=== PATIENT | female | born 1970 | race Caucasian/White ===

== ENCOUNTER 2021-08-30 18:49 | Inpatient (IN) ==
[2021-08-30] MEDS ORDERED: Naloxone 0.4 MG/ML INJ IVP PRN (21:39)
[2021-08-30] MEDS ORDERED: *HR* Dextrose 50 % in Water (Syg) 50 ML SYRINGE IVP PRN (21:41)
[2021-08-30] MEDS ORDERED: D5% in Water 1,000 ML IVC PRN (21:41)
[2021-08-30] MEDS ORDERED: Dextrose 4 GM Chewable Tablets PO PRN ×2 (21:41)
[2021-08-30] MEDS: Insulin LISPRO 300 UNITS/3 ML VIAL SUBQ SCH (22:02)
[2021-08-30 22:09] LABS: Basophils % 0.2 %; Eosinophils # 0.5 K/mcL (0.0-0.6); Eosinophils % 5.5 %; Hematocrit 27.6 % (35.3-44.9); Hemoglobin 8.5 g/dL (11.5-15.4); Immature Granulocytes % 0.2 % (0-4); Lymphocytes # 2.4 K/mcL (0.6-4.6); Lymphocytes % 28.7 %; Mean Corpuscular HGB Conc 30.8 g/dL (31.6-35.5); Mean Corpuscular Volume 94.2 fL (83.0-100.0); Mean Platelet Volume 8.8 fL (9.4-12.4); Monocytes # 0.6 K/mcL (0.0-1.3); Monocytes % 6.7 %; Platelet Count 225 K/mcL (140-400); Red Blood Count 2.93 M/mcL (3.82-4.97); Red Cell Distribution Width 15.3 % (11.5-14.5); Segmented Neutrophils % 58.7 %; White Blood Count 8.5 K/mcL (4.3-11.1)
[2021-08-30 23:31] LABS: Estimated Average Glucose 105 mg/dl; Hemoglobin A1C 5.3 %
[2021-08-31] MEDS ORDERED: Azithromycin 250 MG TABLET PO ONE (00:13)
[2021-08-31] MEDS: Sodium Bicarbonate 75 MEQ in 0.45 % Sodium Chloride 1,000 ML IVC SCH ×2 (00:53→14:13)
[2021-08-31 02:51] LABS: Basophils % 0.1 %; Eosinophils # 0.3 K/mcL (0.0-0.6); Eosinophils % 4.9 %; Hematocrit 22.2 % (35.3-44.9); Hemoglobin 7.1 g/dL (11.5-15.4); Immature Granulocytes % 0.3 % (0-4); Lymphocytes # 2.4 K/mcL (0.6-4.6); Lymphocytes % 35.4 %; Mean Corpuscular Volume 93.7 fL (83.0-100.0); Monocytes # 0.5 K/mcL (0.0-1.3); Monocytes % 7.7 %; Neutrophils # 3.5 K/mcL (1.6-8.9); Platelet Count 194 K/mcL (140-400); Red Blood Count 2.37 M/mcL (3.82-4.97); Red Cell Distribution Width 15.3 % (11.5-14.5); Segmented Neutrophils % 51.6 %; White Blood Count 6.8 K/mcL (4.3-11.1)
[2021-08-31 02:54] LABS: Albumin 2.5 g/dL (3.5-5.7); Albumin/Globulin Ratio 1.1 (1.1-2.2); Bilirubin,Total 0.2 mg/dL (0.3-1.0); Calcium 8.2 mg/dL (8.6-10.3); Globulin 2.3 g/dL (2.4-3.5); Magnesium 1.3 mg/dL (1.6-2.6); Phosphorous 5.4 mg/dL (2.7-4.5); Potassium 4.1 mEq/L (3.5-5.1); Total Protein 4.8 g/dL (6.4-8.9)
[2021-08-31] MEDS: *HR* Heparin 5,000 UNIT/ML VIAL SQ SCH ×3 (05:07→21:12)
[2021-08-31] MEDS: Insulin LISPRO 300 UNITS/3 ML VIAL SUBQ SCH ×2 (07:29→12:04)
[2021-08-31 09:00] LABS: Uric Acid 7.4 mg/dL (2.3-7.6)
[2021-08-31 10:50] LABS: Bacteria,Urine Few per hpf (None-Few); Bilirubin,Urine Negative (Negative); Blood,Urine Moderate (Negative); Clarity,Urine Clear (Clear); Color,Urine Light-Yellow (Yellow); Glucose,Urine (UA) Normal (Normal); Ketones,Urine Negative (Negative); Leukocyte Esterase,Urine Small (Negative); Mucus,Urine Few per lpf (None-Few); Nitrite,Urine Negative (Negative); Protein,Urine >=300 mg/dL (Neg-Trace); Specific Gravity,Urine 1.014 (1.010-1.025); Squamous Epithelial Cell,Urine Few per hpf (None-Few); Urobilinogen,Urine Normal (Normal)
[2021-08-31 11:20] LABS: Protein/Creatinine Ratio,Urine 4.6 mg/mg (0.00-0.20); Sodium, Urine 66.3 mEq/L
[2021-08-31 13:46] LABS: Hematocrit 24.7 % (35.3-44.9); Hemoglobin 7.9 g/dL (11.5-15.4)
[2021-08-31] MEDS ORDERED: Fluticasone Propionate Nasal 50 MCG/SPRAY BOTTLE NS PRN (14:46)
[2021-08-31 15:03] LABS: Complement C3 90 mg/dL (87-200); Rheumatoid Factor < 10 IU/mL (Less than 14)
[2021-08-31 15:27] LABS: Vitamin D 25 Hydroxy 14 ng/mL (30-80)
[2021-08-31] MEDS: amLODIPine 5 MG TABLET PO SCH (15:36)
[2021-08-31] MEDS: Amoxicillin/Clavulanate 500 MG TABLET PO SCH (16:37)
[2021-08-31] MEDS ORDERED: Insulin DETEMIR 100 UNIT/ML X5UNITS SUBQ SCH (21:00)
[2021-09-01] MEDS: Sodium Bicarbonate 75 MEQ in 0.45 % Sodium Chloride 1,000 ML IVC SCH ×2 (01:36→13:44)
[2021-09-01 03:08] LABS: Basophils % 0.1 %; Eosinophils # 0.4 K/mcL (0.0-0.6); Eosinophils % 5.4 %; Hematocrit 22.7 % (35.3-44.9); Hemoglobin 7.2 g/dL (11.5-15.4); Immature Granulocytes % 0.4 % (0-4); Lymphocytes # 1.8 K/mcL (0.6-4.6); Lymphocytes % 26.6 %; Mean Corpuscular HGB Conc 31.7 g/dL (31.6-35.5); Mean Corpuscular Hemoglobin 29.5 pg (28.0-33.3); Mean Platelet Volume 9.1 fL (9.4-12.4); Monocytes # 0.5 K/mcL (0.0-1.3); Monocytes % 7.4 %; Neutrophils # 4.1 K/mcL (1.6-8.9); Platelet Count 211 K/mcL (140-400); Red Blood Count 2.44 M/mcL (3.82-4.97); Red Cell Distribution Width 15.1 % (11.5-14.5); Segmented Neutrophils % 60.1 %; White Blood Count 6.8 K/mcL (4.3-11.1)
[2021-09-01 03:23] LABS: Calcium 8.1 mg/dL (8.6-10.3); Magnesium 1.8 mg/dL (1.6-2.6); Phosphorous 4.6 mg/dL (2.7-4.5); Potassium 3.7 mEq/L (3.5-5.1)
[2021-09-01] MEDS: *HR* Heparin 5,000 UNIT/ML VIAL SQ SCH ×3 (05:15→20:26)
[2021-09-01] MEDS: Amoxicillin/Clavulanate 500 MG TABLET PO SCH ×2 (07:32→16:23)
[2021-09-01] MEDS: Azithromycin 250 MG TABLET PO SCH (07:33)
[2021-09-01] MEDS: amLODIPine 5 MG TABLET PO SCH (07:33)
[2021-09-01] MEDS ORDERED: Iron Sucrose Complex 200 MG in 0.9 % Sodium Chloride 100 ML IVPB ONE (10:57)
[2021-09-01] MEDS: Lactobacillus 1 EACH CAP.SPRINK PO SCH (20:25)
[2021-09-02] MEDS: Sodium Bicarbonate 75 MEQ in 0.45 % Sodium Chloride 1,000 ML IVC SCH ×4 (00:31→20:53)
[2021-09-02] MEDS: *HR* Heparin 5,000 UNIT/ML VIAL SQ SCH ×3 (05:23→20:53)
[2021-09-02 06:16] LABS: Basophils % 0.3 %; Eosinophils # 0.3 K/mcL (0.0-0.6); Eosinophils % 5.4 %; Hematocrit 23.8 % (35.3-44.9); Hemoglobin 7.7 g/dL (11.5-15.4); Immature Granulocytes % 0.2 % (0-4); Lymphocytes # 1.9 K/mcL (0.6-4.6); Lymphocytes % 32.8 %; Mean Corpuscular HGB Conc 32.4 g/dL (31.6-35.5); Mean Corpuscular Hemoglobin 29.3 pg (28.0-33.3); Mean Corpuscular Volume 90.5 fL (83.0-100.0); Mean Platelet Volume 9.2 fL (9.4-12.4); Monocytes # 0.5 K/mcL (0.0-1.3); Monocytes % 9.2 %; Neutrophils # 3.1 K/mcL (1.6-8.9); Platelet Count 208 K/mcL (140-400); Red Blood Count 2.63 M/mcL (3.82-4.97); Red Cell Distribution Width 15.4 % (11.5-14.5); Segmented Neutrophils % 52.1 %; White Blood Count 5.9 K/mcL (4.3-11.1)
[2021-09-02 06:34] LABS: Calcium 8.5 mg/dL (8.6-10.3); Magnesium 1.7 mg/dL (1.6-2.6); Phosphorous 4.6 mg/dL (2.7-4.5); Potassium 3.5 mEq/L (3.5-5.1)
[2021-09-02] MEDS: amLODIPine 5 MG TABLET PO SCH (08:58)
[2021-09-02] MEDS: Azithromycin 250 MG TABLET PO SCH (08:58)
[2021-09-02] MEDS: Lactobacillus 1 EACH CAP.SPRINK PO SCH ×2 (08:58→20:52)
[2021-09-02] MEDS: Amoxicillin/Clavulanate 500 MG TABLET PO SCH ×2 (08:58→16:54)
[2021-09-03 02:53] LABS: Basophils % 0.2 %; Eosinophils # 0.3 K/mcL (0.0-0.6); Eosinophils % 5.3 %; Hematocrit 20.3 % (35.3-44.9); Hemoglobin 6.7 g/dL (11.5-15.4); Immature Granulocytes % 0.2 % (0-4); Lymphocytes % 34.6 %; Mean Corpuscular Hemoglobin 29.9 pg (28.0-33.3); Mean Corpuscular Volume 90.6 fL (83.0-100.0); Mean Platelet Volume 9.7 fL (9.4-12.4); Monocytes # 0.6 K/mcL (0.0-1.3); Monocytes % 9.7 %; Neutrophils # 2.8 K/mcL (1.6-8.9); Platelet Count 201 K/mcL (140-400); Red Blood Count 2.24 M/mcL (3.82-4.97); Red Cell Distribution Width 15.2 % (11.5-14.5); White Blood Count 5.7 K/mcL (4.3-11.1)
[2021-09-03 02:59] LABS: Phosphorous 4.7 mg/dL (2.7-4.5); Potassium 3.4 mEq/L (3.5-5.1)
[2021-09-03] MEDS: Sodium Bicarbonate 75 MEQ in 0.45 % Sodium Chloride 1,000 ML IVC SCH ×2 (05:44→08:29)
[2021-09-03] MEDS: *HR* Heparin 5,000 UNIT/ML VIAL SQ SCH (05:46)
[2021-09-03] MEDS: Azithromycin 250 MG TABLET PO SCH (08:29)
[2021-09-03] MEDS: Lactobacillus 1 EACH CAP.SPRINK PO SCH ×2 (08:29→20:44)
[2021-09-03] MEDS: amLODIPine 5 MG TABLET PO SCH (08:29)
[2021-09-03] MEDS: Amoxicillin/Clavulanate 500 MG TABLET PO SCH ×2 (08:29→16:11)
[2021-09-03] MEDS: Ergocalciferol (VIT D2) 50,000 UNIT (1.25MG) CAP PO SCH (08:34)
[2021-09-03] MEDS ORDERED: 0.9 % Sodium Chloride 250 ML ONE (10:27)
[2021-09-03] MEDS: 0.9 % Sodium Chloride 1,000 ML IVC SCH (13:19)
[2021-09-03 16:24] LABS: Hematocrit 28.1 % (35.3-44.9); Hemoglobin 9.2 g/dL (11.5-15.4)
[2021-09-03 20:58] LABS: Urine Collection Volume NOT PROVIDED mL
[2021-09-04 05:46] LABS: Basophils % 0.2 %; Eosinophils # 0.3 K/mcL (0.0-0.6); Eosinophils % 4.4 %; Hematocrit 25.2 % (35.3-44.9); Hemoglobin 8.2 g/dL (11.5-15.4); Immature Granulocytes % 0.3 % (0-4); Lymphocytes # 1.6 K/mcL (0.6-4.6); Lymphocytes % 24.5 %; Mean Corpuscular HGB Conc 32.5 g/dL (31.6-35.5); Mean Corpuscular Hemoglobin 29.6 pg (28.0-33.3); Mean Platelet Volume 9.4 fL (9.4-12.4); Monocytes # 0.6 K/mcL (0.0-1.3); Monocytes % 9.6 %; Platelet Count 203 K/mcL (140-400); Red Blood Count 2.77 M/mcL (3.82-4.97); Red Cell Distribution Width 16.1 % (11.5-14.5); White Blood Count 6.6 K/mcL (4.3-11.1)
[2021-09-04 06:16] LABS: Calcium 8.2 mg/dL (8.6-10.3); Potassium 3.4 mEq/L (3.5-5.1)
[2021-09-04] MEDS: 0.9 % Sodium Chloride 1,000 ML IVC SCH ×2 (06:33→16:27)
[2021-09-04] MEDS: Magnesium Oxide 400 MG TABLET PO SCH (09:23)
[2021-09-04] MEDS: Azithromycin 250 MG TABLET PO SCH (09:23)
[2021-09-04] MEDS: Lactobacillus 1 EACH CAP.SPRINK PO SCH ×2 (09:23→19:35)
[2021-09-04] MEDS: Amoxicillin/Clavulanate 500 MG TABLET PO SCH ×2 (09:24→16:27)
[2021-09-04] MEDS: amLODIPine 5 MG TABLET PO SCH (09:24)
[2021-09-04 15:12] LABS: Kappa Qnt Free Light Chains 71.09 mg/L (3.30-19.40); Lambda Qnt Free Light Chains 74.64 mg/L (5.71-26.30)
[2021-09-04 23:50] LABS: Beta Globulin (PEP) 0.56 g/dL (0.48-1.10)
[2021-09-05 02:23] LABS: Basophils % 0.1 %; Eosinophils # 0.3 K/mcL (0.0-0.6); Eosinophils % 4.3 %; Hematocrit 24.8 % (35.3-44.9); Hemoglobin 8.1 g/dL (11.5-15.4); Immature Granulocytes % 0.4 % (0-4); Lymphocytes # 1.6 K/mcL (0.6-4.6); Lymphocytes % 22.4 %; Mean Corpuscular HGB Conc 32.7 g/dL (31.6-35.5); Mean Corpuscular Hemoglobin 29.5 pg (28.0-33.3); Mean Corpuscular Volume 90.2 fL (83.0-100.0); Mean Platelet Volume 9.2 fL (9.4-12.4); Monocytes # 0.7 K/mcL (0.0-1.3); Monocytes % 10.4 %; Neutrophils # 4.5 K/mcL (1.6-8.9); Platelet Count 181 K/mcL (140-400); Red Blood Count 2.75 M/mcL (3.82-4.97); Red Cell Distribution Width 15.9 % (11.5-14.5); Segmented Neutrophils % 62.4 %; White Blood Count 7.1 K/mcL (4.3-11.1)
[2021-09-05 02:38] LABS: Calcium 8.2 mg/dL (8.6-10.3); Phosphorous 5.3 mg/dL (2.7-4.5); Potassium 3.5 mEq/L (3.5-5.1)
[2021-09-05] MEDS: 0.9 % Sodium Chloride 1,000 ML IVC SCH ×4 (03:18→15:02)
[2021-09-05] MEDS: Amoxicillin/Clavulanate 500 MG TABLET PO SCH ×2 (09:11→16:53)
[2021-09-05] MEDS: amLODIPine 5 MG TABLET PO SCH (09:11)
[2021-09-05] MEDS: Magnesium Oxide 400 MG TABLET PO SCH (09:12)
[2021-09-05] MEDS: Lactobacillus 1 EACH CAP.SPRINK PO SCH ×2 (09:12→19:35)
[2021-09-05 10:25] LABS: IFE Reflexed NOT DONE
[2021-09-05 11:24] LABS: INR 1.1; Prothrombin Time 12.7 Seconds (9.4-12.1)
[2021-09-05 11:27] LABS: Activated Partial Thrombo Time 35.2 Seconds (26.0-36.0)
[2021-09-05 11:37] LABS: Rheumatoid Factor < 10 IU/mL (Less than 14)
[2021-09-05 11:58] LABS: Vitamin B12 215 pg/mL (250-1100)
[2021-09-05 13:23] LABS: Hepatitis B Surface Antigen Nonreactive (Nonreactive)
[2021-09-05 13:53] LABS: Hepatitis B Core IgM Nonreactive (Nonreactive); Hepatitis C Virus Antibody Nonreactive (Nonreactive)
[2021-09-05 13:56] LABS: Hepatitis A Antibody IgM Nonreactive (Nonreactive)
[2021-09-05] MEDS: carvediloL 6.25 MG TABLET PO SCH (19:34)
[2021-09-06 02:17] LABS: Basophils % 0.1 %; Eosinophils # 0.4 K/mcL (0.0-0.6); Eosinophils % 4.4 %; Hemoglobin 8.2 g/dL (11.5-15.4); Immature Granulocytes % 0.3 % (0-4); Lymphocytes # 1.7 K/mcL (0.6-4.6); Mean Corpuscular HGB Conc 32.8 g/dL (31.6-35.5); Mean Corpuscular Hemoglobin 29.6 pg (28.0-33.3); Mean Corpuscular Volume 90.3 fL (83.0-100.0); Mean Platelet Volume 9.3 fL (9.4-12.4); Monocytes # 0.8 K/mcL (0.0-1.3); Monocytes % 9.8 %; Neutrophils # 5.6 K/mcL (1.6-8.9); Platelet Count 223 K/mcL (140-400); Red Blood Count 2.77 M/mcL (3.82-4.97); Red Cell Distribution Width 15.3 % (11.5-14.5); Segmented Neutrophils % 65.4 %; White Blood Count 8.6 K/mcL (4.3-11.1)
[2021-09-06 02:36] LABS: Calcium 8.1 mg/dL (8.6-10.3); Magnesium 1.5 mg/dL (1.6-2.6); Potassium 3.6 mEq/L (3.5-5.1)
[2021-09-06] MEDS ORDERED: carvediloL 6.25 MG TABLET PO SCH (08:00)
[2021-09-06] MEDS: Lactobacillus 1 EACH CAP.SPRINK PO SCH ×2 (08:17→21:30)
[2021-09-06] MEDS: Amoxicillin/Clavulanate 500 MG TABLET PO SCH ×2 (08:17→17:31)
[2021-09-06] MEDS: amLODIPine 5 MG TABLET PO SCH (08:17)
[2021-09-06] MEDS: carvediloL 6.25 MG TABLET PO SCH ×2 (08:18→17:31)
[2021-09-06] MEDS: Magnesium Oxide 400 MG TABLET PO SCH ×2 (08:18→21:30)
[2021-09-06] MEDS: 0.9 % Sodium Chloride 1,000 ML IVC SCH (09:56)
[2021-09-07 03:18] LABS: Basophils % 0.3 %; Eosinophils % 4.7 %; Hematocrit 23.3 % (35.3-44.9); Hemoglobin 7.4 g/dL (11.5-15.4); Immature Granulocytes % 0.3 % (0-4); Lymphocytes % 24.8 %; Mean Corpuscular HGB Conc 31.8 g/dL (31.6-35.5); Mean Corpuscular Hemoglobin 28.9 pg (28.0-33.3); Mean Platelet Volume 9.2 fL (9.4-12.4); Monocytes % 10.9 %; Platelet Count 184 K/mcL (140-400); Red Blood Count 2.56 M/mcL (3.82-4.97); Red Cell Distribution Width 15.6 % (11.5-14.5); White Blood Count 7.2 K/mcL (4.3-11.1)
[2021-09-07 03:19] LABS: Eosinophils # 0.3 K/mcL (0.0-0.6); Lymphocytes # 1.8 K/mcL (0.6-4.6); Monocytes # 0.8 K/mcL (0.0-1.3); Neutrophils # 4.2 K/mcL (1.6-8.9)
[2021-09-07 03:39] LABS: Calcium 7.9 mg/dL (8.6-10.3); Magnesium 1.9 mg/dL (1.6-2.6); Potassium 3.7 mEq/L (3.5-5.1)
[2021-09-07] MEDS: carvediloL 6.25 MG TABLET PO SCH ×2 (09:15→17:30)
[2021-09-07] MEDS: Amoxicillin/Clavulanate 500 MG TABLET PO SCH (09:15)
[2021-09-07] MEDS: amLODIPine 5 MG TABLET PO SCH (09:15)
[2021-09-07] MEDS: Magnesium Oxide 400 MG TABLET PO SCH ×2 (09:16→20:59)
[2021-09-07] MEDS: Lactobacillus 1 EACH CAP.SPRINK PO SCH ×2 (09:16→20:59)
[2021-09-07] MEDS: 0.9 % Sodium Chloride 1,000 ML IVC SCH (09:16)
[2021-09-07] MEDS ORDERED: 0.9 % Sodium Chloride 500 ML ONE (10:00)
[2021-09-07] MEDS ORDERED: *HR* FentaNYL (PF) 100 MCG/2 ML VIAL IVP ONE (10:06)
[2021-09-07] MEDS ORDERED: *HR* Midazolam HCl 2 MG/2 ML VIAL IVP ONE (10:06)
[2021-09-07 11:34] LABS: ANA IgG by ELISA NONE DETECTED (None Detected)
[2021-09-08 02:39] LABS: Basophils % 0.3 %; Eosinophils # 0.3 K/mcL (0.0-0.6); Eosinophils % 3.9 %; Hematocrit 25.2 % (35.3-44.9); Immature Granulocytes % 0.3 % (0-4); Lymphocytes # 1.4 K/mcL (0.6-4.6); Lymphocytes % 20.1 %; Mean Corpuscular HGB Conc 31.7 g/dL (31.6-35.5); Mean Corpuscular Hemoglobin 28.8 pg (28.0-33.3); Mean Corpuscular Volume 90.6 fL (83.0-100.0); Mean Platelet Volume 10.1 fL (9.4-12.4); Monocytes # 0.6 K/mcL (0.0-1.3); Monocytes % 8.7 %; Neutrophils # 4.7 K/mcL (1.6-8.9); Platelet Count 187 K/mcL (140-400); Red Blood Count 2.78 M/mcL (3.82-4.97); Red Cell Distribution Width 15.4 % (11.5-14.5); Segmented Neutrophils % 66.7 %
[2021-09-08 02:43] LABS: Albumin 2.5 g/dL (3.5-5.7); Bilirubin,Indirect 0.3 mg/dL (0.0-1.0); Bilirubin,Total 0.3 mg/dL (0.3-1.0); Globulin 2.4 g/dL (2.4-3.5); Magnesium 1.9 mg/dL (1.6-2.6); Phosphorous 5.3 mg/dL (2.7-4.5); Potassium 4.3 mEq/L (3.5-5.1); Total Protein 4.9 g/dL (6.4-8.9)
[2021-09-08 02:59] LABS: Platelet Estimate Normal (Normal)
[2021-09-08] MEDS: 0.9 % Sodium Chloride 1,000 ML IVC SCH (06:21)
[2021-09-08] MEDS: carvediloL 6.25 MG TABLET PO SCH ×2 (08:30→16:55)
[2021-09-08] MEDS: amLODIPine 5 MG TABLET PO SCH (08:30)
[2021-09-08] MEDS: Magnesium Oxide 400 MG TABLET PO SCH ×2 (08:31→19:42)
[2021-09-08] MEDS: Lactobacillus 1 EACH CAP.SPRINK PO SCH ×2 (08:31→19:42)
[2021-09-08 11:23] LABS: GBM IgG Multiplex Bead Assay 0 AU/mL (0-19); Glomerular Basement Memb IgG NEGATIVE (Negative)
[2021-09-08] MEDS: Sodium Bicarbonate 75 MEQ in 0.45 % Sodium Chloride 1,000 ML IVC SCH (15:49)
[2021-09-09 05:20] LABS: Basophils % 0.3 %; Eosinophils # 0.2 K/mcL (0.0-0.6); Eosinophils % 4.1 %; Hematocrit 25.7 % (35.3-44.9); Hemoglobin 8.2 g/dL (11.5-15.4); Immature Granulocytes % 0.3 % (0-4); Lymphocytes # 1.6 K/mcL (0.6-4.6); Lymphocytes % 27.7 %; Mean Corpuscular HGB Conc 31.9 g/dL (31.6-35.5); Mean Corpuscular Volume 90.8 fL (83.0-100.0); Mean Platelet Volume 9.3 fL (9.4-12.4); Monocytes # 0.6 K/mcL (0.0-1.3); Monocytes % 10.3 %; Neutrophils # 3.3 K/mcL (1.6-8.9); Platelet Count 261 K/mcL (140-400); Red Blood Count 2.83 M/mcL (3.82-4.97); Red Cell Distribution Width 15.2 % (11.5-14.5); Segmented Neutrophils % 57.3 %; White Blood Count 5.8 K/mcL (4.3-11.1)
[2021-09-09 05:39] LABS: Calcium 8.5 mg/dL (8.6-10.3); Magnesium 2.1 mg/dL (1.6-2.6); Potassium 3.9 mEq/L (3.5-5.1)
[2021-09-09] MEDS: Lactobacillus 1 EACH CAP.SPRINK PO SCH ×2 (08:03→21:47)
[2021-09-09] MEDS: carvediloL 6.25 MG TABLET PO SCH ×2 (08:03→16:50)
[2021-09-09] MEDS: Magnesium Oxide 400 MG TABLET PO SCH ×2 (08:03→21:47)
[2021-09-09] MEDS: amLODIPine 5 MG TABLET PO SCH (08:03)
[2021-09-09] MEDS: Sodium Bicarbonate 75 MEQ in 0.45 % Sodium Chloride 1,000 ML IVC SCH ×2 (08:12→10:00)
[2021-09-09 15:00] LABS: ANCA IFA Titer <1:20 (<1:20)
[2021-09-09 16:32] LABS: Alpha 2 Globulin (PEP) 0.85 g/dL (0.48-1.05); Beta Globulin (PEP) 0.51 g/dL (0.48-1.10)
[2021-09-10 03:04] LABS: Basophils % 0.3 %; Eosinophils # 0.3 K/mcL (0.0-0.6); Eosinophils % 4.3 %; Hematocrit 25.2 % (35.3-44.9); Immature Granulocytes % 0.3 % (0-4); Lymphocytes # 1.9 K/mcL (0.6-4.6); Lymphocytes % 28.6 %; Mean Corpuscular HGB Conc 31.7 g/dL (31.6-35.5); Mean Corpuscular Hemoglobin 28.8 pg (28.0-33.3); Mean Corpuscular Volume 90.6 fL (83.0-100.0); Mean Platelet Volume 9.6 fL (9.4-12.4); Monocytes # 0.7 K/mcL (0.0-1.3); Monocytes % 10.5 %; Neutrophils # 3.7 K/mcL (1.6-8.9); Platelet Count 235 K/mcL (140-400); Red Blood Count 2.78 M/mcL (3.82-4.97); Red Cell Distribution Width 15.1 % (11.5-14.5); White Blood Count 6.7 K/mcL (4.3-11.1)
[2021-09-10 03:18] LABS: Calcium 8.1 mg/dL (8.6-10.3); Potassium 4.1 mEq/L (3.5-5.1)
[2021-09-10] MEDS: Sodium Bicarbonate 75 MEQ in 0.45 % Sodium Chloride 1,000 ML IVC SCH ×2 (07:19→10:57)
[2021-09-10 07:51] LABS: ANCA IFA Pattern NONE DETECTED (None Detected); Serine Protease-3 Antibody 1 AU/mL (0-19)
[2021-09-10 07:54] LABS: IFE Reflexed NOT DONE
[2021-09-10] MEDS: carvediloL 6.25 MG TABLET PO SCH ×2 (08:57→17:23)
[2021-09-10] MEDS: Magnesium Oxide 400 MG TABLET PO SCH ×2 (08:57→19:31)
[2021-09-10] MEDS: Lactobacillus 1 EACH CAP.SPRINK PO SCH ×2 (08:57→19:31)
[2021-09-10] MEDS: amLODIPine 5 MG TABLET PO SCH (08:58)
[2021-09-10] MEDS: Ergocalciferol (VIT D2) 50,000 UNIT (1.25MG) CAP PO SCH (09:06)
[2021-09-10] MEDS ORDERED: *HR* Midazolam HCl 2 MG/2 ML VIAL IVP ONE (09:13)
[2021-09-10] MEDS ORDERED: ceFAZolin 1,000 MG in 0.9 % Sodium Chloride Mini Bag 100 ML IVPB SCH (09:13)
[2021-09-10] MEDS ORDERED: *HR* FentaNYL (PF) 100 MCG/2 ML VIAL IVP ONE (09:13)
[2021-09-10] MEDS ORDERED: Heparin 1,000 UNITS/500 mL 500 ML ONE (09:48)
[2021-09-10] MEDS ORDERED: 0.9 % Sodium Chloride 500 ML ONE (09:52)
[2021-09-10] MEDS ORDERED: *HR* Heparin 5,000 UNIT/ML VIAL ONE (10:07)
[2021-09-10] MEDS ORDERED: CeFAZolin Syr 2,000MG/20 ML 2,000 MG/20 ML SYRINGE IVPB ONE (13:45)
[2021-09-10] MEDS: *HR* HYDROcodone/Acet 5/325 mg TABLET PO PRN ×2 (14:09→23:03)
[2021-09-10] MEDS: Ringers Solution, Lactated 1,000 ML IVC SCH (15:59)
[2021-09-11] MEDS: Sodium Bicarbonate 75 MEQ in 0.45 % Sodium Chloride 1,000 ML IVC SCH (05:35)
[2021-09-11 06:28] LABS: Basophils % 0.1 %; Eosinophils # 0.2 K/mcL (0.0-0.6); Eosinophils % 1.9 %; Hematocrit 25.3 % (35.3-44.9); Hemoglobin 7.9 g/dL (11.5-15.4); Immature Granulocytes % 0.4 % (0-4); Lymphocytes # 1.5 K/mcL (0.6-4.6); Lymphocytes % 18.6 %; Mean Corpuscular HGB Conc 31.2 g/dL (31.6-35.5); Mean Corpuscular Hemoglobin 28.6 pg (28.0-33.3); Mean Corpuscular Volume 91.7 fL (83.0-100.0); Mean Platelet Volume 9.4 fL (9.4-12.4); Monocytes # 0.6 K/mcL (0.0-1.3); Monocytes % 7.9 %; Neutrophils # 5.6 K/mcL (1.6-8.9); Platelet Count 233 K/mcL (140-400); Red Blood Count 2.76 M/mcL (3.82-4.97); Red Cell Distribution Width 15.2 % (11.5-14.5); Segmented Neutrophils % 71.1 %; White Blood Count 7.9 K/mcL (4.3-11.1)
[2021-09-11 06:52] LABS: Calcium 8.4 mg/dL (8.6-10.3); Magnesium 2.1 mg/dL (1.6-2.6); Potassium 4.5 mEq/L (3.5-5.1)
[2021-09-11] MEDS: Ringers Solution, Lactated 1,000 ML IVC SCH (07:37)
[2021-09-11] MEDS ORDERED: *HR* Heparin 10,000 UNIT/10 ML VIAL IV PRN ×2 (07:48)
[2021-09-11] MEDS ORDERED: 0.9 % Sodium Chloride 250 ML IVC PRN (07:48)
[2021-09-11] MEDS: carvediloL 6.25 MG TABLET PO SCH ×3 (07:52→16:49)
[2021-09-11] MEDS: Lactobacillus 1 EACH CAP.SPRINK PO SCH ×2 (07:53→20:06)
[2021-09-11] MEDS: Magnesium Oxide 400 MG TABLET PO SCH ×2 (07:53→20:06)
[2021-09-11] MEDS ORDERED: 0.9 % Sodium Chloride 1,000 ML PRIME SCH (08:00)
[2021-09-11] MEDS: amLODIPine 5 MG TABLET PO SCH (12:46)
[2021-09-11] MEDS: *HR* HYDROcodone/Acet 5/325 mg TABLET PO PRN ×2 (12:46→20:09)
[2021-09-11] MEDS: *HR* Heparin 5,000 UNIT/ML VIAL SQ SCH (16:49)
[2021-09-12 03:29] LABS: Basophils % 0.2 %; Eosinophils # 0.2 K/mcL (0.0-0.6); Eosinophils % 3.5 %; Hemoglobin 7.7 g/dL (11.5-15.4); Immature Granulocytes % 0.5 % (0-4); Lymphocytes # 1.2 K/mcL (0.6-4.6); Lymphocytes % 18.9 %; Mean Corpuscular HGB Conc 32.1 g/dL (31.6-35.5); Mean Corpuscular Hemoglobin 29.2 pg (28.0-33.3); Mean Corpuscular Volume 90.9 fL (83.0-100.0); Mean Platelet Volume 9.5 fL (9.4-12.4); Monocytes # 0.7 K/mcL (0.0-1.3); Monocytes % 10.2 %; Neutrophils # 4.4 K/mcL (1.6-8.9); Platelet Count 237 K/mcL (140-400); Red Blood Count 2.64 M/mcL (3.82-4.97); Red Cell Distribution Width 14.9 % (11.5-14.5); Segmented Neutrophils % 66.7 %; White Blood Count 6.6 K/mcL (4.3-11.1)
[2021-09-12 04:02] LABS: Calcium 8.4 mg/dL (8.6-10.3); Phosphorous 4.1 mg/dL (2.7-4.5); Potassium 4.4 mEq/L (3.5-5.1)
[2021-09-12] MEDS: *HR* Heparin 5,000 UNIT/ML VIAL SQ SCH ×2 (06:18→16:34)
[2021-09-12] MEDS: Magnesium Oxide 400 MG TABLET PO SCH ×2 (07:31→21:02)
[2021-09-12] MEDS: Lactobacillus 1 EACH CAP.SPRINK PO SCH ×2 (07:31→21:02)
[2021-09-12] MEDS: carvediloL 6.25 MG TABLET PO SCH ×2 (07:31→16:35)
[2021-09-12] MEDS ORDERED: *HR* Heparin 10,000 UNIT/10 ML VIAL IV PRN ×2 (08:42)
[2021-09-12] MEDS ORDERED: 0.9 % Sodium Chloride 250 ML IVC PRN (08:42)
[2021-09-12] MEDS: *HR* HYDROcodone/Acet 5/325 mg TABLET PO PRN ×2 (12:32→21:02)
[2021-09-12] MEDS: amLODIPine 5 MG TABLET PO SCH (14:59)
[2021-09-13] MEDS: *HR* Heparin 5,000 UNIT/ML VIAL SQ SCH (05:15)
[2021-09-13 05:16] LABS: Basophils % 0.1 %; Eosinophils # 0.4 K/mcL (0.0-0.6); Eosinophils % 5.2 %; Hematocrit 22.9 % (35.3-44.9); Hemoglobin 7.4 g/dL (11.5-15.4); Immature Granulocytes % 0.4 % (0-4); Lymphocytes # 1.8 K/mcL (0.6-4.6); Lymphocytes % 26.5 %; Mean Corpuscular HGB Conc 32.3 g/dL (31.6-35.5); Mean Corpuscular Hemoglobin 29.1 pg (28.0-33.3); Mean Corpuscular Volume 90.2 fL (83.0-100.0); Mean Platelet Volume 9.4 fL (9.4-12.4); Monocytes # 0.8 K/mcL (0.0-1.3); Neutrophils # 3.9 K/mcL (1.6-8.9); Platelet Count 232 K/mcL (140-400); Red Blood Count 2.54 M/mcL (3.82-4.97); Red Cell Distribution Width 14.9 % (11.5-14.5); Segmented Neutrophils % 56.8 %; White Blood Count 6.8 K/mcL (4.3-11.1)
[2021-09-13 05:20] LABS: Potassium 4.2 mEq/L (3.5-5.1)
[2021-09-13] MEDS: Lactobacillus 1 EACH CAP.SPRINK PO SCH (08:19)
[2021-09-13] MEDS: amLODIPine 5 MG TABLET PO SCH (08:19)
[2021-09-13] MEDS: carvediloL 6.25 MG TABLET PO SCH (08:19)
[2021-09-13] MEDS: Magnesium Oxide 400 MG TABLET PO SCH (08:19)
[2021-09-13] MEDS ORDERED: 0.9 % Sodium Chloride 250 ML IVC PRN (08:27)
[2021-09-13] MEDS ORDERED: *HR* Heparin 10,000 UNIT/10 ML VIAL IV PRN ×2 (08:27)
[2021-09-13 14:41] VITALS: BP 128/52; PULSE 83; TEMP 98; O2SAT 93
== END 2021-09-13 16:12 | disposition home or self-care (01) | DRG 199 ==
LOC: 2ANU → SUATTDRO 21:20
PROVIDERS: ADMIT Internal Medicine; ATTEND Internal Medicine
PROC: IRPERMA (2021-09-10 12:00)

== ENCOUNTER 2022-02-04 14:28 | Observation (INO) ==
[2022-02-04 19:56] LABS: Basophils % 0.3 %; Eosinophils # 0.2 K/mcL (0.0-0.6); Eosinophils % 2.2 %; Hematocrit 32.3 % (35.3-44.9); Hemoglobin 10.4 g/dL (11.5-15.4); Immature Granulocytes % 0.3 % (0-4); Lymphocytes # 2.3 K/mcL (0.6-4.6); Lymphocytes % 24.1 %; Mean Corpuscular HGB Conc 32.2 g/dL (31.6-35.5); Mean Corpuscular Hemoglobin 29.4 pg (28.0-33.3); Mean Corpuscular Volume 91.2 fL (83.0-100.0); Mean Platelet Volume 8.7 fL (9.4-12.4); Monocytes # 0.6 K/mcL (0.0-1.3); Monocytes % 6.4 %; Neutrophils # 6.3 K/mcL (1.6-8.9); Platelet Count 200 K/mcL (140-400); Red Blood Count 3.54 M/mcL (3.82-4.97); Red Cell Distribution Width 18.7 % (11.5-14.5); Segmented Neutrophils % 66.7 %; White Blood Count 9.5 K/mcL (4.3-11.1)
[2022-02-04 20:09] LABS: Potassium 4.2 mEq/L (3.5-5.1)
[2022-02-04] MEDS ORDERED: Acetaminophen 325 MG TABLET PO PRN (23:24)
[2022-02-04] MEDS ORDERED: Ondansetron ODT 4 MG TAB.RAPDIS SL PRN (23:24)
[2022-02-04] MEDS ORDERED: D5% in Water 1,000 ML IVC PRN (23:24)
[2022-02-04] MEDS ORDERED: *HR* Dextrose 50 % in Water (Syg) 50 ML SYRINGE IVP PRN (23:24)
[2022-02-04] MEDS ORDERED: Dextrose Gel 15 GM/37.5 ML TUBE PO PRN ×2 (23:24)
[2022-02-04] MEDS ORDERED: Melatonin 3 MG TABLET PO PRN (23:24)
[2022-02-04] MEDS ORDERED: Naloxone 0.4 MG/ML INJ IVP PRN (23:24)
[2022-02-05] MEDS: Insulin LISPRO 300 UNITS/3 ML VIAL SUBQ SCH ×2 (00:51→05:57)
[2022-02-05 07:01] VITALS: O2SAT 99
[2022-02-05] MEDS ORDERED: *HR* Heparin 10,000 UNIT/10 ML VIAL IV PRN (08:12)
[2022-02-05] MEDS ORDERED: 0.9 % Sodium Chloride 250 ML IVC PRN (08:12)
[2022-02-05] MEDS ORDERED: 0.9 % Sodium Chloride 2,000 ML PRIME SCH (08:15)
[2022-02-05] MEDS ORDERED: Heparin 1,000 UNITS/500 mL 500 ML ONE (08:54)
[2022-02-05 09:50] VITALS: PULSE 91
[2022-02-05] MEDS ORDERED: *HR* Heparin 5,000 UNIT/ML VIAL ONE (09:52)
[2022-02-05 11:33] LABS: Basophils % 0.1 %; Eosinophils # 0.1 K/mcL (0.0-0.6); Eosinophils % 1.6 %; Hemoglobin 10.1 g/dL (11.5-15.4); Immature Granulocytes % 0.1 % (0-4); Lymphocytes # 1.6 K/mcL (0.6-4.6); Lymphocytes % 23.6 %; Mean Corpuscular HGB Conc 32.6 g/dL (31.6-35.5); Mean Corpuscular Hemoglobin 29.4 pg (28.0-33.3); Mean Corpuscular Volume 90.1 fL (83.0-100.0); Mean Platelet Volume 8.9 fL (9.4-12.4); Monocytes # 0.4 K/mcL (0.0-1.3); Monocytes % 5.8 %; Neutrophils # 4.8 K/mcL (1.6-8.9); Platelet Count 174 K/mcL (140-400); Red Blood Count 3.44 M/mcL (3.82-4.97); Red Cell Distribution Width 18.7 % (11.5-14.5); Segmented Neutrophils % 68.8 %; White Blood Count 6.9 K/mcL (4.3-11.1)
[2022-02-05 11:44] LABS: INR 1.1; Prothrombin Time 12.8 Seconds (9.4-12.1)
[2022-02-05 11:50] LABS: Calcium 8.7 mg/dL (8.6-10.3); Potassium 3.8 mEq/L (3.5-5.1)
[2022-02-05 11:51] LABS: Albumin 3.5 g/dL (3.5-5.7); Albumin/Globulin Ratio 1.3 (1.1-2.2); Bilirubin,Total 0.4 mg/dL (0.3-1.0); Calcium 8.7 mg/dL (8.6-10.3); Globulin 2.8 g/dL (2.4-3.5); Phosphorous 3.9 mg/dL (2.7-4.5); Potassium 3.7 mEq/L (3.5-5.1); Total Protein 6.3 g/dL (6.4-8.9)
[2022-02-05 12:00] LABS: Estimated Average Glucose 117 mg/dl; Hemoglobin A1C 5.7 %
[2022-02-05 12:09] LABS: Activated Partial Thrombo Time 125.6 Seconds (26.0-36.0)
[2022-02-05 14:13] VITALS: BP 111/86; TEMP 98.3
[2022-02-05 15:03] LABS: Hepatitis B Surface Antibody < 3.10 mIU/mL
[2022-02-05 15:14] LABS: Hepatitis B Surface Antigen Nonreactive (Nonreactive)
== END 2022-02-05 15:27 | disposition home or self-care (01) ==
LOC: EMEROOARM 14:28 → 3NENU 14:28
PROVIDERS: ADMIT Internal Medicine; ATTEND Internal Medicine
PROC: IRPERMA (2022-02-05 12:00)

== ENCOUNTER 2022-03-03 06:55 | Inpatient (IN) ==
[2022-03-03] MEDS ORDERED: Naloxone 0.4 MG/ML INJ IVP PRN (11:12)
[2022-03-03] MEDS ORDERED: Ondansetron 4 MG/2 ML VIAL IVP PRN (11:12)
[2022-03-03] MEDS ORDERED: Melatonin 3 MG TABLET PO PRN (11:12)
[2022-03-03] MEDS ORDERED: Nitroglycerin 0.4 MG TAB.SUBL SL PRN (12:34)
[2022-03-03 12:36] LABS: Basophils % 0.1 %; Eosinophils # 0.1 K/mcL (0.0-0.6); Eosinophils % 1.2 %; Hemoglobin 10.2 g/dL (11.5-15.4); Immature Granulocytes % 0.9 % (0-4); Lymphocytes # 2.5 K/mcL (0.6-4.6); Lymphocytes % 24.6 %; Mean Corpuscular HGB Conc 35.2 g/dL (31.6-35.5); Mean Corpuscular Hemoglobin 30.4 pg (28.0-33.3); Mean Corpuscular Volume 86.3 fL (83.0-100.0); Mean Platelet Volume 9.1 fL (9.4-12.4); Monocytes # 0.6 K/mcL (0.0-1.3); Monocytes % 6.1 %; Neutrophils # 6.8 K/mcL (1.6-8.9); Platelet Count 164 K/mcL (140-400); Red Blood Count 3.36 M/mcL (3.82-4.97); Red Cell Distribution Width 14.6 % (11.5-14.5); Segmented Neutrophils % 67.1 %; White Blood Count 10.1 K/mcL (4.3-11.1)
[2022-03-03 12:54] LABS: Albumin 3.7 g/dL (3.5-5.7); Albumin/Globulin Ratio 1.4 (1.1-2.2); Bilirubin,Total 0.4 mg/dL (0.3-1.0); Calcium 8.4 mg/dL (8.6-10.3); Chol/HDL Ratio 1.7 (0-4.9); Globulin 2.6 g/dL (2.4-3.5); Potassium 3.8 mEq/L (3.5-5.1); Total Protein 6.3 g/dL (6.4-8.9)
[2022-03-03] MEDS ORDERED: *HR* Heparin 5,000 UNIT/ML VIAL IVP PRN ×2 (14:57)
[2022-03-03] MEDS ORDERED: *HR* Heparin 5,000 UNIT/ML VIAL IVP ONE (14:57)
[2022-03-03] MEDS ORDERED: Heparin 25,000UNIT/250ML 1/2NS 25,000 UNIT/250 ML IV.SOLN IVC SCH (15:00)
[2022-03-03] MEDS: 0.9 % Sodium Chloride 1,000 ML IVC SCH (16:06)
[2022-03-03] MEDS: carvediloL 6.25 MG TABLET PO SCH (16:12)
[2022-03-03 16:48] LABS: Hematocrit 33.7 % (35.3-44.9); Hemoglobin 11.4 g/dL (11.5-15.4); Mean Corpuscular HGB Conc 33.8 g/dL (31.6-35.5); Mean Corpuscular Hemoglobin 30.1 pg (28.0-33.3); Mean Corpuscular Volume 88.9 fL (83.0-100.0); Mean Platelet Volume 8.7 fL (9.4-12.4); Platelet Count 181 K/mcL (140-400); Red Blood Count 3.79 M/mcL (3.82-4.97); Red Cell Distribution Width 14.6 % (11.5-14.5); White Blood Count 10.3 K/mcL (4.3-11.1)
[2022-03-03 17:00] LABS: Heparin anti-factor XA UFH 0.06 IU/mL (0.30-0.70)
[2022-03-03 17:01] LABS: Prothrombin Time 10.8 Seconds (9.4-12.1)
[2022-03-04 03:42] LABS: Hepatitis B Surface Antibody < 3.10 mIU/mL
[2022-03-04 03:53] LABS: Hepatitis B Surface Antigen Nonreactive (Nonreactive)
[2022-03-04] MEDS: 0.9 % Sodium Chloride 1,000 ML IVC SCH (04:20)
[2022-03-04 05:15] LABS: Basophils % 0.2 %; Eosinophils # 0.2 K/mcL (0.0-0.6); Eosinophils % 1.7 %; Hematocrit 25.4 % (35.3-44.9); Immature Granulocytes % 0.3 % (0-4); Lymphocytes # 2.5 K/mcL (0.6-4.6); Lymphocytes % 27.2 %; Mean Corpuscular HGB Conc 32.7 g/dL (31.6-35.5); Mean Corpuscular Hemoglobin 29.4 pg (28.0-33.3); Mean Corpuscular Volume 90.1 fL (83.0-100.0); Mean Platelet Volume 9.4 fL (9.4-12.4); Monocytes # 0.7 K/mcL (0.0-1.3); Monocytes % 7.6 %; Neutrophils # 5.9 K/mcL (1.6-8.9); Platelet Count 137 K/mcL (140-400); Red Blood Count 2.82 M/mcL (3.82-4.97); Red Cell Distribution Width 14.6 % (11.5-14.5); White Blood Count 9.3 K/mcL (4.3-11.1)
[2022-03-04 05:16] LABS: Hemoglobin 8.3 g/dL (11.5-15.4)
[2022-03-04 05:31] LABS: Calcium 7.3 mg/dL (8.6-10.3); Magnesium 1.8 mg/dL (1.6-2.6); Potassium 3.7 mEq/L (3.5-5.1)
[2022-03-04 05:34] LABS: Estimated Average Glucose 108 mg/dl; Hemoglobin A1C 5.4 %
[2022-03-04] MEDS ORDERED: Acetaminophen 325 MG TABLET PO PRN (07:52)
[2022-03-04] MEDS ORDERED: Fluticasone Propionate Nasal 50 MCG/SPRAY BOTTLE NS PRN (07:52)
[2022-03-04] MEDS ORDERED: Ondansetron ODT 4 MG TAB.RAPDIS PO PRN (07:52)
[2022-03-04] MEDS ORDERED: Mometasone Furoate 100 MCG/PUFF Inhaler IH PRN (07:52)
[2022-03-04] MEDS ORDERED: Cefdinir 300 MG CAPSULE PO SCH ×2 (09:00→17:00)
[2022-03-04] MEDS: Aspirin 81 MG TAB.CHEW PO SCH (10:28)
[2022-03-04] MEDS: carvediloL 6.25 MG TABLET PO SCH (10:31)
[2022-03-04 10:51] LABS: Phosphorous 4.6 mg/dL (2.7-4.5)
[2022-03-04] MEDS ORDERED: *HR* Heparin 10,000 UNIT/10 ML VIAL IV PRN (11:03)
[2022-03-04] MEDS ORDERED: 0.9 % Sodium Chloride 250 ML IVC PRN (11:03)
[2022-03-04] MEDS ORDERED: 0.9 % Sodium Chloride 2,000 ML PRIME SCH (11:15)
[2022-03-04] MEDS: Cyanocobalamin (B-12) 1,000 MCG TABLET PO SCH (13:19)
[2022-03-04 21:55] LABS: Bacteria,Urine Moderate per hpf (None-Few); Bilirubin,Urine Negative (Negative); Blood,Urine Small (Negative); Calcium Oxalate Crystals,Urine Present per hpf; Clarity,Urine Turbid (Clear); Color,Urine Yellow (Yellow); Glucose,Urine (UA) 70 mg/dL (Normal); Ketones,Urine Negative (Negative); Leukocyte Esterase,Urine Large (Negative); Mucus,Urine Few per lpf (None-Few); Nitrite,Urine Negative (Negative); Protein,Urine >=300 mg/dL (Neg-Trace); RBC,Urine 15-30 per hpf (0-3); Specific Gravity,Urine 1.008 (1.010-1.025); Squamous Epithelial Cell,Urine Many per hpf (None-Few); Urobilinogen,Urine Normal (Normal); WBC,Urine 50-100 per hpf (0-3)
[2022-03-05 05:20] LABS: Hematocrit 25.5 % (35.3-44.9); Hemoglobin 8.4 g/dL (11.5-15.4); Mean Corpuscular HGB Conc 32.9 g/dL (31.6-35.5); Mean Corpuscular Hemoglobin 29.6 pg (28.0-33.3); Mean Corpuscular Volume 89.8 fL (83.0-100.0); Mean Platelet Volume 9.1 fL (9.4-12.4); Platelet Count 145 K/mcL (140-400); Red Blood Count 2.84 M/mcL (3.82-4.97); Red Cell Distribution Width 14.7 % (11.5-14.5); White Blood Count 7.5 K/mcL (4.3-11.1)
[2022-03-05 05:41] LABS: Calcium 7.5 mg/dL (8.6-10.3); Potassium 3.8 mEq/L (3.5-5.1)
[2022-03-05] MEDS ORDERED: Heparin 25,000UNIT/250ML 1/2NS 25,000 UNIT/250 ML IV.SOLN IVC SCH (06:00)
[2022-03-05] MEDS: carvediloL 6.25 MG TABLET PO SCH ×2 (08:13→17:40)
[2022-03-05] MEDS: Aspirin 81 MG TAB.CHEW PO SCH (09:41)
[2022-03-05] MEDS: Cyanocobalamin (B-12) 1,000 MCG TABLET PO SCH (09:41)
[2022-03-05] MEDS: *HR* Heparin 5,000 UNIT/ML VIAL SQ SCH (17:41)
[2022-03-06 03:02] LABS: Basophils % 0.2 %; Eosinophils # 0.2 K/mcL (0.0-0.6); Eosinophils % 2.9 %; Hematocrit 25.6 % (35.3-44.9); Hemoglobin 8.5 g/dL (11.5-15.4); Immature Granulocytes % 0.3 % (0-4); Lymphocytes # 1.8 K/mcL (0.6-4.6); Lymphocytes % 27.3 %; Mean Corpuscular HGB Conc 33.2 g/dL (31.6-35.5); Mean Corpuscular Hemoglobin 29.8 pg (28.0-33.3); Mean Corpuscular Volume 89.8 fL (83.0-100.0); Monocytes # 0.6 K/mcL (0.0-1.3); Monocytes % 9.1 %; Platelet Count 139 K/mcL (140-400); Red Blood Count 2.85 M/mcL (3.82-4.97); Red Cell Distribution Width 14.6 % (11.5-14.5); Segmented Neutrophils % 60.2 %; White Blood Count 6.6 K/mcL (4.3-11.1)
[2022-03-06 03:03] LABS: Hematocrit 25.9 % (35.3-44.9); Hemoglobin 8.5 g/dL (11.5-15.4); Mean Corpuscular HGB Conc 32.8 g/dL (31.6-35.5); Mean Corpuscular Hemoglobin 29.3 pg (28.0-33.3); Mean Corpuscular Volume 89.3 fL (83.0-100.0); Mean Platelet Volume 9.5 fL (9.4-12.4); Platelet Count 152 K/mcL (140-400); Red Cell Distribution Width 14.6 % (11.5-14.5); White Blood Count 6.7 K/mcL (4.3-11.1)
[2022-03-06 05:00] LABS: Calcium 7.9 mg/dL (8.6-10.3); Potassium 3.9 mEq/L (3.5-5.1)
[2022-03-06] MEDS: *HR* Heparin 5,000 UNIT/ML VIAL SQ SCH ×2 (05:04→20:34)
[2022-03-06 05:05] LABS: Albumin 3.2 g/dL (3.5-5.7); Albumin/Globulin Ratio 1.5 (1.1-2.2); Bilirubin,Total 0.3 mg/dL (0.3-1.0); Calcium 7.9 mg/dL (8.6-10.3); Globulin 2.2 g/dL (2.4-3.5); Potassium 3.9 mEq/L (3.5-5.1); Total Protein 5.4 g/dL (6.4-8.9)
[2022-03-06] MEDS: Aspirin 81 MG TAB.CHEW PO SCH (07:36)
[2022-03-06] MEDS: Cyanocobalamin (B-12) 1,000 MCG TABLET PO SCH (07:36)
[2022-03-06] MEDS: carvediloL 6.25 MG TABLET PO SCH ×2 (07:36→20:34)
[2022-03-06] MEDS ORDERED: 0.9 % Sodium Chloride 250 ML IVC PRN (10:14)
[2022-03-07 05:21] LABS: INR 1.1; Prothrombin Time 12.3 Seconds (9.4-12.1)
[2022-03-07 05:22] LABS: Activated Partial Thrombo Time 35.5 Seconds (26.0-36.0)
[2022-03-07 05:54] LABS: Potassium 3.8 mEq/L (3.5-5.1)
[2022-03-07 05:55] LABS: Albumin/Globulin Ratio 1.4 (1.1-2.2); Bilirubin,Total 0.3 mg/dL (0.3-1.0); Calcium 8.1 mg/dL (8.6-10.3); Globulin 2.2 g/dL (2.4-3.5); Total Protein 5.2 g/dL (6.4-8.9)
[2022-03-07] MEDS: *HR* Heparin 5,000 UNIT/ML VIAL SQ SCH ×2 (05:55→17:32)
[2022-03-07 06:25] LABS: Hematocrit 24.4 % (35.3-44.9); Mean Corpuscular HGB Conc 32.8 g/dL (31.6-35.5); Mean Corpuscular Hemoglobin 29.9 pg (28.0-33.3); Mean Platelet Volume 9.3 fL (9.4-12.4); Platelet Count 151 K/mcL (140-400); Red Blood Count 2.68 M/mcL (3.82-4.97); Red Cell Distribution Width 14.6 % (11.5-14.5); White Blood Count 7.5 K/mcL (4.3-11.1)
[2022-03-07] MEDS: Cyanocobalamin (B-12) 1,000 MCG TABLET PO SCH (07:41)
[2022-03-07] MEDS: carvediloL 6.25 MG TABLET PO SCH ×2 (07:41→17:32)
[2022-03-07] MEDS: Aspirin 81 MG TAB.CHEW PO SCH (07:42)
[2022-03-07 09:05] LABS: Basophils % 0.1 %; Eosinophils # 0.2 K/mcL (0.0-0.6); Eosinophils % 2.2 %; Hematocrit 28.8 % (35.3-44.9); Hemoglobin 9.5 g/dL (11.5-15.4); Immature Granulocytes % 0.2 % (0-4); Lymphocytes # 1.7 K/mcL (0.6-4.6); Lymphocytes % 20.3 %; Mean Corpuscular Hemoglobin 29.6 pg (28.0-33.3); Mean Corpuscular Volume 89.7 fL (83.0-100.0); Monocytes # 0.6 K/mcL (0.0-1.3); Monocytes % 7.4 %; Neutrophils # 5.9 K/mcL (1.6-8.9); Platelet Count 192 K/mcL (140-400); Red Blood Count 3.21 M/mcL (3.82-4.97); Red Cell Distribution Width 14.6 % (11.5-14.5); Segmented Neutrophils % 69.8 %; White Blood Count 8.5 K/mcL (4.3-11.1)
[2022-03-07 09:23] LABS: Calcium 8.3 mg/dL (8.6-10.3); Potassium 3.8 mEq/L (3.5-5.1)
[2022-03-07] MEDS: Chlorhexidine Rinse 15 ML MOUTHWASH MM SCH (21:43)
[2022-03-08 01:44] LABS: Hematocrit 23.7 % (35.3-44.9); Mean Corpuscular HGB Conc 32.5 g/dL (31.6-35.5); Mean Corpuscular Hemoglobin 29.6 pg (28.0-33.3); Mean Corpuscular Volume 91.2 fL (83.0-100.0); Platelet Count 156 K/mcL (140-400); Red Cell Distribution Width 14.5 % (11.5-14.5); White Blood Count 7.5 K/mcL (4.3-11.1)
[2022-03-08 02:01] LABS: Calcium 8.1 mg/dL (8.6-10.3); Potassium 3.9 mEq/L (3.5-5.1)
[2022-03-08 02:02] LABS: Hemoglobin 7.7 g/dL (11.5-15.4)
[2022-03-08] MEDS: Chlorhexidine Rinse 15 ML MOUTHWASH MM SCH ×2 (05:31→21:19)
[2022-03-08] MEDS: *HR* Heparin 5,000 UNIT/ML VIAL SQ SCH ×2 (05:31→19:12)
[2022-03-08] MEDS ORDERED: Aspirin 81 MG TAB.CHEW PO ONE (06:00)
[2022-03-08] MEDS ORDERED: CeFAZolin Syr 2,000MG/20 ML 2,000 MG/20 ML SYRINGE IVPB ONE (06:00)
[2022-03-08] MEDS ORDERED: DOBUTamine 1,000 MG/250 ML BAG ONE (06:01)
[2022-03-08] MEDS ORDERED: NiCARdipine 2.5 MG/10 ML Syringe IVPB ONE ×2 (06:01→11:20)
[2022-03-08] MEDS ORDERED: *HR* Midazolam HCl 5 MG/5 ML VIAL IVP ONE (06:11)
[2022-03-08] MEDS ORDERED: EPHEDrine sulfate 50 MG/10 ML VIAL IVP ONE (06:11)
[2022-03-08] MEDS ORDERED: *HR* FentaNYL (PF) 1,000 MCG/20 ML VIAL ONE (06:11)
[2022-03-08] MEDS ORDERED: Papaverine 60 MG/2 ML VIAL IVP ONE (06:12)
[2022-03-08] MEDS ORDERED: *HR* Norepinephrine 4 MG/4 ML VIAL IVC ONE (06:14)
[2022-03-08] MEDS ORDERED: *HR* Rocuronium Bromide 50 MG/5 ML VIAL ONE (06:14)
[2022-03-08] MEDS ORDERED: niCARdipine 20 MG/200 ML MLS IVC ONE (06:14)
[2022-03-08] MEDS ORDERED: Tranexamic Acid 1,000 MG/10 ML VIAL ONE (06:18)
[2022-03-08] MEDS ORDERED: *HR* Etomidate 20 MG/10 ML AMPUL IVP ONE (06:18)
[2022-03-08] MEDS ORDERED: Protamine Sulfate 250 MG/25 ML VIAL IVP ONE (06:20)
[2022-03-08] MEDS ORDERED: Norepinephrine 4 MG in 0.9 % Sodium Chloride 250 ML IVC PRN (07:00)
[2022-03-08] MEDS ORDERED: Buckersberg's Blood Cardioplegia PF ONE (07:00)
[2022-03-08] MEDS ORDERED: del Nido Cardioplegia Solution PF ONE ×2 (07:00)
[2022-03-08] MEDS ORDERED: Heparin 15,000 UNIT in 0.9 % Sodium Chloride 500 ML IR ONE (07:00)
[2022-03-08 07:26] LABS: VBG Base Excess -4 mEq/L; VBG Chloride 105 mEq/L (98-107); VBG Glucose 57 mg/dl (65-95); VBG HCO3 22 mEq/L (21-27); VBG Oxygen Saturation 87 %; VBG PCO2 39 mmHg (41-51); VBG PH 7.35 pH Units (7.32-7.42); VBG PO2 55 mmHg (25-50); VBG Total CO2 23 mEq/L
[2022-03-08 07:34] LABS: ABG Base Excess 1 mEq/L (-2 to 3); ABG Chloride 96 mEq/L (98-107); ABG Glucose 73 mg/dL (60-95); ABG HCO3 27 mEq/L (21-27); ABG Ionized Calcium 1.08 mmol/L (1.15-1.35); ABG Oxygen Saturation 100 % (95-98); ABG PCO2 48 mmHg (35-45); ABG PH 7.36 pH Units (7.32-7.45); ABG PO2 308 mmHg (85-104); ABG TCO2 28 mEq/L (20-26)
[2022-03-08] MEDS: CeFAZolin Syr 2,000MG/20 ML 2,000 MG/20 ML SYRINGE IVPB ONE ×2 (08:00→12:00)
[2022-03-08] MEDS ORDERED: *HR* Heparin 10,000 UNIT/10 ML VIAL IV PRN ×2 (08:36)
[2022-03-08] MEDS ORDERED: 0.9 % Sodium Chloride 250 ML IVC PRN (08:36)
[2022-03-08] MEDS ORDERED: Cefdinir 300 MG CAPSULE PO SCH (09:00)
[2022-03-08] MEDS ORDERED: *HR* Dextrose 50 % in Water (Syg) 50 ML SYRINGE IVP PRN (10:13)
[2022-03-08] MEDS ORDERED: *HR* FentaNYL (PF) 100 MCG/2 ML VIAL IVP PRN (10:13)
[2022-03-08] MEDS ORDERED: Potassium Chloride 40 MEQ/200 ML BAG IVPB PRN (10:13)
[2022-03-08] MEDS ORDERED: Albumin Human 5% 12.5 GM/250 ML IV.SOLN IVPB PRN (10:13)
[2022-03-08] MEDS ORDERED: Albuterol 2.5 MG/3 ML NEBULIZER IH PRN (10:13)
[2022-03-08] MEDS ORDERED: Insulin Regular, Human 100 UNIT/ML IV PRN (10:13)
[2022-03-08 10:17] LABS: ABG Base Excess 1 mEq/L (-2 to 3); ABG Chloride 97 mEq/L (98-107); ABG Glucose 77 mg/dL (60-95); ABG HCO3 24 mEq/L (21-27); ABG Ionized Calcium 1.01 mmol/L (1.15-1.35); ABG Oxygen Saturation 100 % (95-98); ABG PCO2 30 mmHg (35-45); ABG PH 7.51 pH Units (7.32-7.45); ABG PO2 163 mmHg (85-104); ABG TCO2 25 mEq/L (20-26)
[2022-03-08] MEDS ORDERED: Albumin Human 5% 12.5 GM/250 ML IV.SOLN ONE (11:41)
[2022-03-08 11:59] LABS: ABG Base Excess 0 mEq/L (-2 to 3); ABG Chloride 98 mEq/L (98-107); ABG Glucose 82 mg/dL (60-95); ABG HCO3 25 mEq/L (21-27); ABG Ionized Calcium 0.91 mmol/L (1.15-1.35); ABG Oxygen Saturation 100 % (95-98); ABG PCO2 39 mmHg (35-45); ABG PH 7.41 pH Units (7.32-7.45); ABG PO2 609 mmHg (85-104); ABG TCO2 26 mEq/L (20-26)
[2022-03-08 12:21] LABS: ABG Base Excess -1 mEq/L (-2 to 3); ABG Chloride 101 mEq/L (98-107); ABG Glucose 98 mg/dL (60-95); ABG HCO3 24 mEq/L (21-27); ABG Ionized Calcium 1.06 mmol/L (1.15-1.35); ABG Oxygen Saturation 100 % (95-98); ABG PCO2 44 mmHg (35-45); ABG PH 7.35 pH Units (7.32-7.45); ABG PO2 623 mmHg (85-104); ABG TCO2 26 mEq/L (20-26)
[2022-03-08 12:55] LABS: ABG Base Excess 0 mEq/L (-2 to 3); ABG Chloride 100 mEq/L (98-107); ABG Glucose 89 mg/dL (60-95); ABG HCO3 26 mEq/L (21-27); ABG Ionized Calcium 1.24 mmol/L (1.15-1.35); ABG Oxygen Saturation 100 % (95-98); ABG PCO2 48 mmHg (35-45); ABG PH 7.34 pH Units (7.32-7.45); ABG PO2 626 mmHg (85-104); ABG TCO2 28 mEq/L (20-26)
[2022-03-08] MEDS: Ipratropium/Albuterol Neb 3 ML IH SCH ×4 (13:09→23:34)
[2022-03-08 13:14] LABS: ABG Base Excess -2 mEq/L (-2 to 3); ABG Chloride 101 mEq/L (98-107); ABG Glucose 88 mg/dL (60-95); ABG HCO3 23 mEq/L (21-27); ABG Oxygen Saturation 99 % (95-98); ABG PCO2 37 mmHg (35-45); ABG PO2 146 mmHg (85-104); ABG TCO2 24 mEq/L (20-26)
[2022-03-08] MEDS ORDERED: Protamine Sulfate 50 MG/5 ML VIAL IVP ONE (13:15)
[2022-03-08 14:40] LABS: ABG Base Excess -3 mEq/L (-2 to 3); ABG HCO3 22 mEq/L (21-27); ABG Oxygen Saturation 99 % (95-98); ABG PCO2 38 mmHg (35-45); ABG PH 7.37 pH Units (7.32-7.45); ABG PO2 122 mmHg (85-104); ABG TCO2 23 mEq/L (20-26); Blood Gas Modality AF; Blood Gas VT 500 cc
[2022-03-08 14:50] LABS: Basophils % 0.2 %; Eosinophils % 1.6 %; Immature Granulocytes % 0.6 % (0-4)
[2022-03-08 14:51] LABS: Eosinophils # 0.2 K/mcL (0.0-0.6); Hematocrit 31.9 % (35.3-44.9); Hemoglobin 10.4 g/dL (11.5-15.4); Immature Platelets 1.6 % (1.1-6.1); Lymphocytes % 15.7 %; Mean Corpuscular HGB Conc 32.6 g/dL (31.6-35.5); Mean Corpuscular Hemoglobin 28.8 pg (28.0-33.3); Mean Corpuscular Volume 88.4 fL (83.0-100.0); Mean Platelet Volume 9.2 fL (9.4-12.4); Monocytes # 0.5 K/mcL (0.0-1.3); Monocytes % 4.2 %; Neutrophils # 9.6 K/mcL (1.6-8.9); Red Blood Count 3.61 M/mcL (3.82-4.97); Red Cell Distribution Width 14.7 % (11.5-14.5); Segmented Neutrophils % 77.7 %
[2022-03-08 14:53] LABS: Platelet Count 71 K/mcL (140-400)
[2022-03-08 14:55] LABS: White Blood Count 12.4 K/mcL (4.3-11.1)
[2022-03-08 15:00] LABS: INR 1.4
[2022-03-08] MEDS ORDERED: Aspirin Enteric Coated 81 MG Tablet PO ONE (15:00)
[2022-03-08 15:02] LABS: Activated Partial Thrombo Time 34.7 Seconds (26.0-36.0)
[2022-03-08 15:03] LABS: Calcium 7.9 mg/dL (8.6-10.3); Magnesium 3.1 mg/dL (1.6-2.6); Potassium 4.3 mEq/L (3.5-5.1)
[2022-03-08 15:17] LABS: Prothrombin Time 15.9 Seconds (9.4-12.1)
[2022-03-08] MEDS: Aspirin 81 MG TAB.CHEW PO SCH (15:20)
[2022-03-08] MEDS: Cyanocobalamin (B-12) 1,000 MCG TABLET PO SCH (15:21)
[2022-03-08] MEDS: CeFAZolin 2 GM/120 ML BAG IVPB SCH (17:15)
[2022-03-08 18:45] LABS: ABG Base Excess -3 mEq/L (-2 to 3); ABG HCO3 23 mEq/L (21-27); ABG Oxygen Saturation 96 % (95-98); ABG PCO2 39 mmHg (35-45); ABG PH 7.37 pH Units (7.32-7.45); ABG PO2 86 mmHg (85-104); ABG TCO2 24 mEq/L (20-26); Blood Gas Modality AF; Blood Gas VT 500 cc
[2022-03-08] MEDS: niCARdipine 20 MG/200 ML MLS IVC SCH ×2 (19:06→22:41)
[2022-03-08 22:14] LABS: ABG Base Excess -5 mEq/L (-2 to 3); ABG HCO3 19 mEq/L (21-27); ABG Oxygen Saturation 96 % (95-98); ABG PCO2 31 mmHg (35-45); ABG PH 7.39 pH Units (7.32-7.45); ABG PO2 83 mmHg (85-104); ABG TCO2 20 mEq/L (20-26); Blood Gas Pressure Support 8 cm H2O
[2022-03-08] MEDS: FentaNYL (PF) 1,000 MCG/100 ML IV.SOLN IVC SCH (22:35)
[2022-03-09] MEDS: CeFAZolin 2 GM/120 ML BAG IVPB SCH (00:08)
[2022-03-09 02:08] LABS: ABG Base Excess -5 mEq/L (-2 to 3); ABG HCO3 20 mEq/L (21-27); ABG Oxygen Saturation 96 % (95-98); ABG PCO2 39 mmHg (35-45); ABG PH 7.33 pH Units (7.32-7.45); ABG PO2 90 mmHg (85-104); ABG TCO2 22 mEq/L (20-26); Blood Gas VT 500 cc
[2022-03-09 03:25] LABS: INR 1.2; Prothrombin Time 13.1 Seconds (9.4-12.1)
[2022-03-09 03:28] LABS: Activated Partial Thrombo Time 34.1 Seconds (26.0-36.0)
[2022-03-09 03:35] LABS: Calcium 8.2 mg/dL (8.6-10.3); Potassium 4.6 mEq/L (3.5-5.1)
[2022-03-09] MEDS: Ipratropium/Albuterol Neb 3 ML IH SCH ×6 (03:52→23:21)
[2022-03-09] MEDS: *HR* Heparin 5,000 UNIT/ML VIAL SQ SCH ×2 (06:10→18:32)
[2022-03-09 06:17] LABS: ABG Base Excess -5 mEq/L (-2 to 3); ABG HCO3 17 mEq/L (21-27); ABG Oxygen Saturation 96 % (95-98); ABG PCO2 25 mmHg (35-45); ABG PH 7.45 pH Units (7.32-7.45); ABG PO2 75 mmHg (85-104); ABG TCO2 18 mEq/L (20-26); Blood Gas Pressure Support 8 cm H2O
[2022-03-09] MEDS ORDERED: *HR* Heparin 10,000 UNIT/10 ML VIAL IV PRN (07:24)
[2022-03-09] MEDS ORDERED: 0.9 % Sodium Chloride 250 ML IVC PRN (07:24)
[2022-03-09] MEDS ORDERED: 0.9 % Sodium Chloride 2,000 ML PRIME SCH (07:30)
[2022-03-09] MEDS ORDERED: Dextrose Gel 15 GM/37.5 ML TUBE PO PRN (09:03)
[2022-03-09] MEDS: Aspirin 81 MG TAB.CHEW PO SCH (10:13)
[2022-03-09] MEDS: Cyanocobalamin (B-12) 1,000 MCG TABLET PO SCH (10:14)
[2022-03-09] MEDS: Chlorhexidine Rinse 15 ML MOUTHWASH MM SCH ×2 (10:15→21:19)
[2022-03-09] MEDS: Insulin LISPRO 300 UNITS/3 ML VIAL SUBQ SCH ×2 (11:43→16:47)
[2022-03-09] MEDS: *HR* OxyCODONE/APAP 5/325 TABLET PO PRN ×2 (12:38→19:23)
[2022-03-09] MEDS: FentaNYL (PF) 1,000 MCG/100 ML IV.SOLN IVC SCH (18:32)
[2022-03-09] MEDS ORDERED: Insulin LISPRO 300 UNITS/3 ML VIAL SUBQ SCH (21:00)
[2022-03-10 00:45] LABS: Mixed Venous Blood pCO2 50 mmHg (44-46); Mixed Venous Blood pH 7.39 pH Units (7.34-7.36); Mixed Venous Blood pO2 31 mmHg (35-45)
[2022-03-10] MEDS: Ipratropium/Albuterol Neb 3 ML IH SCH ×6 (03:13→23:31)
[2022-03-10 04:11] LABS: Basophils % 0.2 %; Eosinophils # 0.2 K/mcL (0.0-0.6); Eosinophils % 1.2 %; Hematocrit 30.4 % (35.3-44.9); Hemoglobin 9.7 g/dL (11.5-15.4); Immature Granulocytes % 0.6 % (0-4); Lymphocytes # 1.7 K/mcL (0.6-4.6); Mean Corpuscular HGB Conc 31.9 g/dL (31.6-35.5); Mean Platelet Volume 9.8 fL (9.4-12.4); Monocytes # 1.5 K/mcL (0.0-1.3); Monocytes % 12.1 %; Neutrophils # 8.7 K/mcL (1.6-8.9); Platelet Count 123 K/mcL (140-400); Red Blood Count 3.34 M/mcL (3.82-4.97); Red Cell Distribution Width 15.9 % (11.5-14.5); Segmented Neutrophils % 71.9 %; White Blood Count 12.1 K/mcL (4.3-11.1)
[2022-03-10 04:34] LABS: Calcium 8.3 mg/dL (8.6-10.3); Magnesium 2.3 mg/dL (1.6-2.6); Potassium 4.2 mEq/L (3.5-5.1)
[2022-03-10] MEDS: *HR* Heparin 5,000 UNIT/ML VIAL SQ SCH ×2 (06:11→17:17)
[2022-03-10] MEDS: Chlorhexidine Rinse 15 ML MOUTHWASH MM SCH ×2 (08:09→20:56)
[2022-03-10] MEDS: Aspirin 81 MG TAB.CHEW PO SCH (08:09)
[2022-03-10] MEDS: Cyanocobalamin (B-12) 1,000 MCG TABLET PO SCH (08:09)
[2022-03-10] MEDS: Insulin LISPRO 300 UNITS/3 ML VIAL SUBQ SCH ×4 (08:10→20:56)
[2022-03-10] MEDS: *HR* OxyCODONE/APAP 5/325 TABLET PO PRN (08:34)
[2022-03-10] MEDS ORDERED: Mag Hydrox/Al Hydrox/Simeth 30 ML UDC PO SCH (12:06)
[2022-03-10] MEDS ORDERED: Dextrose Gel 15 GM/37.5 ML TUBE PO PRN (15:14)
[2022-03-10] MEDS ORDERED: 0.9 % Sodium Chloride 2,000 ML PRIME SCH (15:14)
[2022-03-10] MEDS ORDERED: Potassium Chloride 40 MEQ/200 ML BAG IVPB PRN (15:14)
[2022-03-10] MEDS ORDERED: Ondansetron 4 MG/2 ML VIAL IVP PRN (15:14)
[2022-03-10] MEDS ORDERED: Mometasone Furoate 100 MCG/PUFF Inhaler IH PRN (15:14)
[2022-03-10] MEDS ORDERED: *HR* Heparin 10,000 UNIT/10 ML VIAL IV PRN (15:14)
[2022-03-10] MEDS ORDERED: Fluticasone Propionate Nasal 50 MCG/SPRAY BOTTLE NS PRN (15:14)
[2022-03-10] MEDS ORDERED: Acetaminophen 325 MG TABLET PO PRN (15:14)
[2022-03-10] MEDS ORDERED: Albuterol 2.5 MG/3 ML NEBULIZER IH PRN (15:14)
[2022-03-10] MEDS ORDERED: 0.9 % Sodium Chloride 250 ML IVC PRN (15:14)
[2022-03-10] MEDS ORDERED: Naloxone 0.4 MG/ML INJ IVP PRN (15:14)
[2022-03-10] MEDS ORDERED: *HR* Dextrose 50 % in Water (Syg) 50 ML SYRINGE IVP PRN (15:14)
[2022-03-10] MEDS ORDERED: Melatonin 3 MG TABLET PO PRN (15:14)
[2022-03-10] MEDS ORDERED: FentaNYL (PF) 1,000 MCG/100 ML IV.SOLN IVC SCH (15:14)
[2022-03-11 03:19] LABS: Basophils % 0.2 %; Eosinophils # 0.2 K/mcL (0.0-0.6); Eosinophils % 1.8 %; Hematocrit 27.7 % (35.3-44.9); Hemoglobin 8.6 g/dL (11.5-15.4); Immature Granulocytes % 0.8 % (0-4); Lymphocytes # 1.6 K/mcL (0.6-4.6); Lymphocytes % 13.4 %; Mean Corpuscular Hemoglobin 28.8 pg (28.0-33.3); Mean Corpuscular Volume 92.6 fL (83.0-100.0); Mean Platelet Volume 10.1 fL (9.4-12.4); Monocytes # 1.2 K/mcL (0.0-1.3); Monocytes % 10.6 %; Neutrophils # 8.4 K/mcL (1.6-8.9); Platelet Count 152 K/mcL (140-400); Red Blood Count 2.99 M/mcL (3.82-4.97); Red Cell Distribution Width 15.8 % (11.5-14.5); Segmented Neutrophils % 73.2 %; White Blood Count 11.5 K/mcL (4.3-11.1)
[2022-03-11 03:38] LABS: Calcium 8.3 mg/dL (8.6-10.3); Magnesium 2.4 mg/dL (1.6-2.6); Potassium 4.2 mEq/L (3.5-5.1)
[2022-03-11] MEDS: Ipratropium/Albuterol Neb 3 ML IH SCH ×6 (04:18→23:35)
[2022-03-11] MEDS: *HR* OxyCODONE/APAP 5/325 TABLET PO PRN ×3 (04:47→15:46)
[2022-03-11] MEDS: *HR* Heparin 5,000 UNIT/ML VIAL SQ SCH ×2 (04:47→17:08)
[2022-03-11] MEDS ORDERED: 0.9 % Sodium Chloride 250 ML IVC PRN (07:28)
[2022-03-11] MEDS ORDERED: 0.9 % Sodium Chloride 2,000 ML PRIME SCH (07:30)
[2022-03-11] MEDS: Chlorhexidine Rinse 15 ML MOUTHWASH MM SCH ×2 (08:53→20:36)
[2022-03-11] MEDS: Cyanocobalamin (B-12) 1,000 MCG TABLET PO SCH (08:53)
[2022-03-11] MEDS: Aspirin 81 MG TAB.CHEW PO SCH (08:53)
[2022-03-11] MEDS: Insulin LISPRO 300 UNITS/3 ML VIAL SUBQ SCH ×4 (08:54→19:12)
[2022-03-11] MEDS ORDERED: *HR* Heparin 10,000 UNIT/10 ML VIAL IV PRN (12:02)
[2022-03-11] MEDS: Cefdinir 300 MG CAPSULE PO SCH (13:24)
[2022-03-12 02:08] LABS: Eosinophils # 0.2 K/mcL (0.0-0.6); Eosinophils % 1.9 %; Hematocrit 27.6 % (35.3-44.9); Hemoglobin 8.4 g/dL (11.5-15.4); Immature Granulocytes % 0.9 % (0-4); Lymphocytes # 1.1 K/mcL (0.6-4.6); Lymphocytes % 13.5 %; Mean Corpuscular HGB Conc 30.4 g/dL (31.6-35.5); Mean Corpuscular Hemoglobin 28.9 pg (28.0-33.3); Mean Corpuscular Volume 94.8 fL (83.0-100.0); Mean Platelet Volume 9.3 fL (9.4-12.4); Monocytes # 0.8 K/mcL (0.0-1.3); Monocytes % 9.4 %; Platelet Count 186 K/mcL (140-400); Red Blood Count 2.91 M/mcL (3.82-4.97); Red Cell Distribution Width 15.8 % (11.5-14.5); Segmented Neutrophils % 74.3 %; White Blood Count 8.1 K/mcL (4.3-11.1)
[2022-03-12 02:24] LABS: Calcium 8.2 mg/dL (8.6-10.3); Magnesium 2.2 mg/dL (1.6-2.6); Potassium 4.2 mEq/L (3.5-5.1)
[2022-03-12] MEDS: Ipratropium/Albuterol Neb 3 ML IH SCH ×6 (03:40→23:13)
[2022-03-12] MEDS: *HR* Heparin 5,000 UNIT/ML VIAL SQ SCH ×2 (05:39→17:04)
[2022-03-12] MEDS: Insulin LISPRO 300 UNITS/3 ML VIAL SUBQ SCH ×4 (07:17→21:32)
[2022-03-12] MEDS: Cyanocobalamin (B-12) 1,000 MCG TABLET PO SCH (09:24)
[2022-03-12] MEDS: Chlorhexidine Rinse 15 ML MOUTHWASH MM SCH ×2 (09:26→19:57)
[2022-03-12] MEDS: Aspirin 81 MG TAB.CHEW PO SCH (09:26)
[2022-03-12] MEDS: *HR* OxyCODONE/APAP 5/325 TABLET PO PRN (09:29)
[2022-03-12] MEDS: polyethylene glycoL 3350 17 GM POWD.PACK PO SCH (10:43)
[2022-03-12] MEDS: niCARdipine 20 MG/200 ML MLS IVC SCH (18:21)
[2022-03-12] MEDS: FentaNYL (PF) 1,000 MCG/100 ML IV.SOLN IVC SCH (18:21)
[2022-03-13] MEDS: Ipratropium/Albuterol Neb 3 ML IH SCH ×5 (04:22→19:52)
[2022-03-13 04:46] LABS: Basophils % 0.1 %; Eosinophils # 0.2 K/mcL (0.0-0.6); Hematocrit 26.2 % (35.3-44.9); Immature Granulocytes % 0.8 % (0-4); Lymphocytes # 1.3 K/mcL (0.6-4.6); Lymphocytes % 15.1 %; Mean Corpuscular HGB Conc 30.5 g/dL (31.6-35.5); Mean Corpuscular Volume 94.9 fL (83.0-100.0); Mean Platelet Volume 9.2 fL (9.4-12.4); Monocytes # 0.8 K/mcL (0.0-1.3); Monocytes % 9.3 %; Neutrophils # 6.2 K/mcL (1.6-8.9); Platelet Count 259 K/mcL (140-400); Red Blood Count 2.76 M/mcL (3.82-4.97); Segmented Neutrophils % 72.7 %; White Blood Count 8.5 K/mcL (4.3-11.1)
[2022-03-13 04:59] LABS: BUN/Creatinine Ratio 4 (6-26); Blood Urea Nitrogen 25 mg/dL (6-20); Calcium 7.9 mg/dL (8.6-10.3); Carbon Dioxide 29 mEq/L (23-29); Chloride 98 mEq/L (98-107); Glucose 80 mg/dL (70-105); Magnesium 2.3 mg/dL (1.6-2.6); Osmolality,Calculated 281 (280-300); Potassium 4.5 mEq/L (3.5-5.1); Sodium 134 mEq/L (136-145)
[2022-03-13] MEDS: *HR* Heparin 5,000 UNIT/ML VIAL SQ SCH ×2 (05:26→17:58)
[2022-03-13] MEDS: Insulin LISPRO 300 UNITS/3 ML VIAL SUBQ SCH ×4 (07:19→21:07)
[2022-03-13] MEDS: Aspirin 81 MG TAB.CHEW PO SCH (07:31)
[2022-03-13] MEDS: Chlorhexidine Rinse 15 ML MOUTHWASH MM SCH ×2 (07:32→19:44)
[2022-03-13] MEDS: polyethylene glycoL 3350 17 GM POWD.PACK PO SCH (07:32)
[2022-03-13] MEDS: Cyanocobalamin (B-12) 1,000 MCG TABLET PO SCH (07:32)
[2022-03-13] MEDS ORDERED: 0.9 % Sodium Chloride 250 ML IVC PRN (07:33)
[2022-03-13] MEDS ORDERED: Iopamidol - 370 500 ML MLS IVP ONE (08:04)
[2022-03-13 08:41] LABS: Alanine Aminotransferase < 3 Units/L (7-52); Albumin 2.7 g/dL (3.5-5.7); Albumin/Globulin Ratio 1.3 (1.1-2.2); Alkaline Phosphatase 76 Units/L (34-104); Aspartate Amino Transferase 12 Units/L (13-39); Bilirubin,Direct 0.3 mg/dL (0.0-0.2); Bilirubin,Indirect 0.1 mg/dL (0.0-1.0); Bilirubin,Total 0.4 mg/dL (0.3-1.0); Globulin 2.1 g/dL (2.4-3.5); Total Protein 4.8 g/dL (6.4-8.9)
[2022-03-13] MEDS ORDERED: *HR* Heparin 10,000 UNIT/10 ML VIAL IV PRN (11:55)
[2022-03-13] MEDS: Cefdinir 300 MG CAPSULE PO SCH (13:47)
[2022-03-13] MEDS: Metoclopramide 10 MG/2 ML VIAL IVP SCH ×2 (13:47→17:59)
[2022-03-14] MEDS: Ipratropium/Albuterol Neb 3 ML IH SCH ×6 (00:03→20:14)
[2022-03-14] MEDS: Metoclopramide 10 MG/2 ML VIAL IVP SCH ×4 (05:19→16:57)
[2022-03-14] MEDS: *HR* Heparin 5,000 UNIT/ML VIAL SQ SCH ×2 (05:19→16:56)
[2022-03-14] MEDS: Insulin LISPRO 300 UNITS/3 ML VIAL SUBQ SCH ×4 (07:19→21:51)
[2022-03-14] MEDS: Aspirin 81 MG TAB.CHEW PO SCH (07:39)
[2022-03-14] MEDS: polyethylene glycoL 3350 17 GM POWD.PACK PO SCH (07:39)
[2022-03-14] MEDS: Chlorhexidine Rinse 15 ML MOUTHWASH MM SCH ×2 (07:39→21:51)
[2022-03-14] MEDS: Cyanocobalamin (B-12) 1,000 MCG TABLET PO SCH (07:39)
[2022-03-14 09:19] LABS: Basophils % 0.2 %; Eosinophils # 0.2 K/mcL (0.0-0.6); Eosinophils % 1.7 %; Hematocrit 25.2 % (35.3-44.9); Hemoglobin 7.6 g/dL (11.5-15.4); Immature Granulocytes % 0.9 % (0-4); Lymphocytes # 1.3 K/mcL (0.6-4.6); Lymphocytes % 13.4 %; Mean Corpuscular HGB Conc 30.2 g/dL (31.6-35.5); Mean Corpuscular Hemoglobin 29.1 pg (28.0-33.3); Mean Corpuscular Volume 96.6 fL (83.0-100.0); Mean Platelet Volume 9.2 fL (9.4-12.4); Monocytes # 0.9 K/mcL (0.0-1.3); Monocytes % 9.5 %; Neutrophils # 6.9 K/mcL (1.6-8.9); Platelet Count 312 K/mcL (140-400); Red Blood Count 2.61 M/mcL (3.82-4.97); Red Cell Distribution Width 16.8 % (11.5-14.5); Segmented Neutrophils % 74.3 %; White Blood Count 9.3 K/mcL (4.3-11.1)
[2022-03-14 09:35] LABS: Calcium 8.2 mg/dL (8.6-10.3); Magnesium 2.1 mg/dL (1.6-2.6); Potassium 3.7 mEq/L (3.5-5.1)
[2022-03-14] MEDS: predniSONE 20 MG TABLET PO SCH (14:46)
[2022-03-14 18:06] LABS: ABG Base Excess 3 mEq/L (-2 to 3); ABG HCO3 28 mEq/L (21-27); ABG Oxygen Saturation 85 % (95-98); ABG PCO2 41 mmHg (35-45); ABG PH 7.44 pH Units (7.32-7.45); ABG PO2 48 mmHg (85-104); ABG TCO2 29 mEq/L (20-26)
[2022-03-14 19:25] LABS: Adenovirus Not Detected (Not Detect); Bordetella Pertussis Not Detected (Not Detect); Chlamydophila pneumoniae Not Detected (Not Detect); Coronavirus 229E Not Detected (Not Detect); Coronavirus HKU1 Not Detected (Not Detect); Coronavirus NL63 Not Detected (Not Detect); Coronavirus OC43 Not Detected (Not Detect); Human Metapneumovirus Not Detected (Not Detect); Human Rhinovirus/Enterovirus Not Detected (Not Detect); Influenza A Subtype 2009 H1 Not Detected (Not Detect); Influenza B Not Detected (Not Detect); Mycoplasma pneumoniae Not Detected (Not Detect); Parainfluenza Virus 1 Not Detected (Not Detect); Parainfluenza Virus 2 Not Detected (Not Detect); Parainfluenza Virus 3 Not Detected (Not Detect); Parainfluenza Virus 4 Not Detected (Not Detect); Respiratory Syncytial Virus Not Detected (Not Detect); SARS-CoV-2 Not Detected (Not Detect)
[2022-03-15] MEDS: Ipratropium/Albuterol Neb 3 ML IH SCH ×7 (00:10→23:56)
[2022-03-15] MEDS: Metoclopramide 10 MG/2 ML VIAL IVP SCH ×5 (01:10→23:22)
[2022-03-15 03:15] LABS: Basophils % 0.2 %; Hematocrit 25.5 % (35.3-44.9); Hemoglobin 7.7 g/dL (11.5-15.4); Immature Granulocytes % 1.6 % (0-4); Lymphocytes # 0.8 K/mcL (0.6-4.6); Lymphocytes % 8.2 %; Mean Corpuscular HGB Conc 30.2 g/dL (31.6-35.5); Mean Corpuscular Hemoglobin 28.9 pg (28.0-33.3); Mean Corpuscular Volume 95.9 fL (83.0-100.0); Mean Platelet Volume 9.1 fL (9.4-12.4); Monocytes # 0.3 K/mcL (0.0-1.3); Monocytes % 3.1 %; Neutrophils # 8.8 K/mcL (1.6-8.9); Nucleated Red Blood Cells 0.3 /100 WBC (0); Platelet Count 335 K/mcL (140-400); Red Blood Count 2.66 M/mcL (3.82-4.97); Red Cell Distribution Width 17.2 % (11.5-14.5); Segmented Neutrophils % 86.9 %; White Blood Count 10.1 K/mcL (4.3-11.1)
[2022-03-15 03:34] LABS: Calcium 8.4 mg/dL (8.6-10.3); Magnesium 2.3 mg/dL (1.6-2.6); Potassium 4.5 mEq/L (3.5-5.1)
[2022-03-15] MEDS: *HR* Heparin 5,000 UNIT/ML VIAL SQ SCH ×2 (06:24→18:58)
[2022-03-15] MEDS ORDERED: 0.9 % Sodium Chloride 250 ML IVC PRN (06:41)
[2022-03-15] MEDS ORDERED: *HR* Heparin 10,000 UNIT/10 ML VIAL IV PRN (08:02)
[2022-03-15 08:48] LABS: ABG Base Excess 2 mEq/L (-2 to 3); ABG HCO3 26 mEq/L (21-27); ABG Oxygen Saturation 98 % (95-98); ABG PCO2 38 mmHg (35-45); ABG PH 7.45 pH Units (7.32-7.45); ABG PO2 102 mmHg (85-104); ABG TCO2 27 mEq/L (20-26)
[2022-03-15] MEDS: Aspirin 81 MG TAB.CHEW PO SCH (09:11)
[2022-03-15] MEDS: Chlorhexidine Rinse 15 ML MOUTHWASH MM SCH ×2 (09:11→21:03)
[2022-03-15] MEDS: predniSONE 20 MG TABLET PO SCH (09:12)
[2022-03-15] MEDS: Cyanocobalamin (B-12) 1,000 MCG TABLET PO SCH (09:12)
[2022-03-15] MEDS: Doxycycline 100 MG in 0.9 % Sodium Chloride Mini Bag 100 ML IVPB SCH ×2 (09:15→21:03)
[2022-03-15] MEDS: Piperacillin/Tazobactam 3.375 GM in 0.9 % Sodium Chloride Mini Bag 100 ML IVPB SCH ×2 (09:15→21:03)
[2022-03-15] MEDS: Insulin LISPRO 300 UNITS/3 ML VIAL SUBQ SCH ×4 (09:16→21:04)
[2022-03-15] MEDS: polyethylene glycoL 3350 17 GM POWD.PACK PO SCH (09:17)
[2022-03-16 02:53] LABS: Basophils % 0.2 %; Eosinophils % 0.1 %; Hematocrit 23.7 % (35.3-44.9); Hemoglobin 7.3 g/dL (11.5-15.4); Immature Granulocytes % 2.2 % (0-4); Lymphocytes # 1.2 K/mcL (0.6-4.6); Mean Corpuscular HGB Conc 30.8 g/dL (31.6-35.5); Mean Corpuscular Hemoglobin 29.3 pg (28.0-33.3); Mean Corpuscular Volume 95.2 fL (83.0-100.0); Monocytes # 0.9 K/mcL (0.0-1.3); Monocytes % 8.2 %; Neutrophils # 8.4 K/mcL (1.6-8.9); Nucleated Red Blood Cells 0.4 /100 WBC (0); Platelet Count 366 K/mcL (140-400); Red Blood Count 2.49 M/mcL (3.82-4.97); Red Cell Distribution Width 18.2 % (11.5-14.5); Segmented Neutrophils % 78.3 %; White Blood Count 10.7 K/mcL (4.3-11.1)
[2022-03-16 03:09] LABS: Magnesium 2.1 mg/dL (1.6-2.6); Potassium 3.7 mEq/L (3.5-5.1)
[2022-03-16] MEDS: Ipratropium/Albuterol Neb 3 ML IH SCH ×6 (04:08→23:39)
[2022-03-16] MEDS: *HR* Heparin 5,000 UNIT/ML VIAL SQ SCH ×2 (06:06→17:39)
[2022-03-16] MEDS: Metoclopramide 10 MG/2 ML VIAL IVP SCH ×3 (06:06→17:39)
[2022-03-16] MEDS: Insulin LISPRO 300 UNITS/3 ML VIAL SUBQ SCH ×4 (07:42→20:20)
[2022-03-16] MEDS: Cyanocobalamin (B-12) 1,000 MCG TABLET PO SCH (07:51)
[2022-03-16] MEDS: Aspirin 81 MG TAB.CHEW PO SCH (07:51)
[2022-03-16] MEDS: predniSONE 20 MG TABLET PO SCH (07:51)
[2022-03-16] MEDS: Chlorhexidine Rinse 15 ML MOUTHWASH MM SCH ×2 (07:52→20:20)
[2022-03-16] MEDS: polyethylene glycoL 3350 17 GM POWD.PACK PO SCH (07:52)
[2022-03-16] MEDS: Doxycycline 100 MG in 0.9 % Sodium Chloride Mini Bag 100 ML IVPB SCH ×2 (11:51→14:00)
[2022-03-16] MEDS: Piperacillin/Tazobactam 3.375 GM in 0.9 % Sodium Chloride Mini Bag 100 ML IVPB SCH ×2 (13:59→14:01)
[2022-03-17] MEDS: Doxycycline 100 MG in 0.9 % Sodium Chloride Mini Bag 100 ML IVPB SCH ×3 (01:21→23:00)
[2022-03-17] MEDS: Piperacillin/Tazobactam 3.375 GM in 0.9 % Sodium Chloride Mini Bag 100 ML IVPB SCH ×2 (01:22→12:44)
[2022-03-17] MEDS: Metoclopramide 10 MG/2 ML VIAL IVP SCH ×5 (01:22→22:57)
[2022-03-17] MEDS: Ipratropium/Albuterol Neb 3 ML IH SCH ×6 (03:17→23:01)
[2022-03-17 04:35] LABS: Basophils % 0.2 %; Eosinophils % 0.2 %; Hematocrit 21.7 % (35.3-44.9); Hemoglobin 6.6 g/dL (11.5-15.4); Immature Granulocytes % 4.5 % (0-4); Lymphocytes # 2.1 K/mcL (0.6-4.6); Lymphocytes % 17.2 %; Mean Corpuscular HGB Conc 30.4 g/dL (31.6-35.5); Mean Corpuscular Hemoglobin 29.2 pg (28.0-33.3); Mean Platelet Volume 8.7 fL (9.4-12.4); Monocytes # 1.1 K/mcL (0.0-1.3); Monocytes % 8.7 %; Neutrophils # 8.4 K/mcL (1.6-8.9); Nucleated Red Blood Cells 0.8 /100 WBC (0); Platelet Count 392 K/mcL (140-400); Red Blood Count 2.26 M/mcL (3.82-4.97); Red Cell Distribution Width 19.9 % (11.5-14.5); Segmented Neutrophils % 69.2 %; White Blood Count 12.1 K/mcL (4.3-11.1)
[2022-03-17 04:59] LABS: Calcium 8.1 mg/dL (8.6-10.3); Magnesium 2.1 mg/dL (1.6-2.6); Phosphorous 1.7 mg/dL (2.7-4.5); Potassium 3.8 mEq/L (3.5-5.1)
[2022-03-17] MEDS: *HR* Heparin 5,000 UNIT/ML VIAL SQ SCH ×2 (06:20→16:32)
[2022-03-17] MEDS: Insulin LISPRO 300 UNITS/3 ML VIAL SUBQ SCH ×4 (07:35→21:33)
[2022-03-17] MEDS: *HR* OxyCODONE/APAP 5/325 TABLET PO PRN (07:36)
[2022-03-17] MEDS: Chlorhexidine Rinse 15 ML MOUTHWASH MM SCH ×2 (07:36→21:34)
[2022-03-17] MEDS: predniSONE 20 MG TABLET PO SCH (07:36)
[2022-03-17] MEDS: Cyanocobalamin (B-12) 1,000 MCG TABLET PO SCH (07:36)
[2022-03-17] MEDS: Aspirin 81 MG TAB.CHEW PO SCH (07:36)
[2022-03-17] MEDS: polyethylene glycoL 3350 17 GM POWD.PACK PO SCH (07:37)
[2022-03-17 12:57] LABS: Hematocrit 26.6 % (35.3-44.9)
[2022-03-17 12:58] LABS: Hemoglobin 8.2 g/dL (11.5-15.4)
[2022-03-18] MEDS: Piperacillin/Tazobactam 3.375 GM in 0.9 % Sodium Chloride Mini Bag 100 ML IVPB SCH (00:08)
[2022-03-18] MEDS: Ipratropium/Albuterol Neb 3 ML IH SCH ×5 (04:05→19:40)
[2022-03-18 04:48] LABS: Basophils % 0.2 %; Eosinophils % 0.1 %; Hematocrit 27.2 % (35.3-44.9); Hemoglobin 8.5 g/dL (11.5-15.4); Immature Granulocytes % 6.2 % (0-4); Lymphocytes # 2.3 K/mcL (0.6-4.6); Lymphocytes % 13.8 %; Mean Corpuscular HGB Conc 31.3 g/dL (31.6-35.5); Mean Corpuscular Hemoglobin 29.7 pg (28.0-33.3); Mean Corpuscular Volume 95.1 fL (83.0-100.0); Mean Platelet Volume 8.7 fL (9.4-12.4); Monocytes # 1.1 K/mcL (0.0-1.3); Monocytes % 6.8 %; Nucleated Red Blood Cells 0.7 /100 WBC (0); Platelet Count 398 K/mcL (140-400); Red Blood Count 2.86 M/mcL (3.82-4.97); Red Cell Distribution Width 19.4 % (11.5-14.5); Segmented Neutrophils % 72.9 %; White Blood Count 16.4 K/mcL (4.3-11.1)
[2022-03-18] MEDS: Metoclopramide 10 MG/2 ML VIAL IVP SCH ×3 (05:12→16:59)
[2022-03-18] MEDS: *HR* Heparin 5,000 UNIT/ML VIAL SQ SCH ×2 (05:13→16:56)
[2022-03-18 05:19] LABS: Calcium 8.3 mg/dL (8.6-10.3); Magnesium 2.7 mg/dL (1.6-2.6); Potassium 4.1 mEq/L (3.5-5.1)
[2022-03-18 07:01] LABS: Anisocytosis 1+ (Not Present); Platelet Estimate Normal (Normal)
[2022-03-18] MEDS: Insulin LISPRO 300 UNITS/3 ML VIAL SUBQ SCH ×4 (07:40→19:34)
[2022-03-18] MEDS: polyethylene glycoL 3350 17 GM POWD.PACK PO SCH (09:16)
[2022-03-18] MEDS: Chlorhexidine Rinse 15 ML MOUTHWASH MM SCH ×2 (09:17→19:30)
[2022-03-18] MEDS: Aspirin 81 MG TAB.CHEW PO SCH (09:18)
[2022-03-18] MEDS: Cyanocobalamin (B-12) 1,000 MCG TABLET PO SCH (09:18)
[2022-03-18] MEDS: predniSONE 20 MG TABLET PO SCH (09:37)
[2022-03-18] MEDS ORDERED: 0.9 % Sodium Chloride 250 ML IVC PRN (09:38)
[2022-03-18] MEDS ORDERED: *HR* Heparin 10,000 UNIT/10 ML VIAL IV PRN (09:38)
[2022-03-18 12:00] LABS: RBC,Pleural Fluid 19000 RBC/mcL
[2022-03-18 12:21] LABS: Glucose,Pleural Fluid 81 mg/dL (No Ref Range); LDH,Pleural Fluid 160 Units/L (No Ref Range); Total Protein,Pleural Fluid < 2.0 g/dL
[2022-03-18 13:07] LABS: Eosinophils,Pleural Fluid 0 %
[2022-03-18 13:11] LABS: Appearance of Pleural Fl Cloudy (Clear)
[2022-03-18 19:39] VITALS: BP 153/66; PULSE 94; TEMP 98.2; O2SAT 92
== END 2022-03-18 23:59 | disposition other institution (70) | DRG 165 ==
LOC: 3NENU → SUATTDRO 11:12 → ICNU 03-08 14:00 → 2NNU 03-10 15:13
PROVIDERS: ADMIT Internal Medicine; ATTEND Internal Medicine